=== PATIENT | female | born 1960 | race Caucasian/White ===

== ENCOUNTER 2020-01-19 06:03 | Outpatient (REF) | payer BC, SELFPAY ==
[2020-01-19 07:18] LABS: MANUAL DIFF FLAG NO
[2020-01-19 07:26] LABS: Basophils Absolute Auto 0.1 X10*3/uL (0.0-0.2); Basophils Percent Auto 0.9 % (0-2); Eosinophils Absolute Auto 0.4 X10*3/uL (0.0-0.4); Eosinophils Percent Auto 6.2 % (0-4); Hematocrit 41.7 % (37-47); Hemoglobin 14.1 g/dl (12.0-16.0); Imm Gran Abs Auto 0.03 X10*3/uL (0.00-0.03); Imm Gran Pct Auto 0.5 % (0.0-0.4); Lymphocytes Absolute Auto 1.3 X10*3/uL (1.2-4.9); Lymphocytes Percent Auto 22.3 % (20-40); Mean Corpuscular HGB Conc 33.8 g/dl (31.0-35.0); Mean Corpuscular Hemoglobin 28.8 pg (27.0-33.0); Mean Corpuscular Volume 85.3 fL (80-98); Mean Platelet Volume 9.4 fL (9.4-12.3); Monocytes Absolute Auto 0.5 X10*3/uL (0.1-1.2); Monocytes Percent Auto 8.3 % (2-11); Neutrophils Absolute Auto 3.5 X10*3/uL (2.0-8.3); Neutrophils Percent Auto 61.8 % (45-73); Platelet Count 320 X10*3/uL (160-400); Red Blood Count 4.89 X10*6/uL (4.20-5.50); Red Cell Distribution Width 12.5 % (11.0-16.0); White Blood Count 5.7 X10*3/uL (4.8-10.8)
[2020-01-19 07:35] LABS: Alanine Aminotransferase 17 U/L (0-31); Albumin Level 4.3 g/dL (3.5-5.0); Alkaline Phosphatase 59 U/L (39-117); Anion Gap 13 (12-20); Aspartate Amino Transferase 17 U/L (5-31); Bilirubin Total 0.3 mg/dL (0.0-1.0); Blood Urea Nitrogen 14 mg/dL (9-16); Calcium 9.5 mg/dL (8.4-10.2); Carbon Dioxide 28 mmol/L (22-29); Chloride 105 mmol/L (96-108); Cholesterol 211 mg/dL; Estimated Glomerular Filt Rate > 60; Glucose Random 91 mg/dL (60-115); HDL Cholesterol 44 mg/dL; LDL Cholesterol Calculated 129 mg/dl; Potassium 4.1 mmol/l (3.3-5.1); Sodium 142 mmol/L (135-145); Total Protein 6.8 g/dL (6.5-8.0); Triglycerides 190 mg/dL
[2020-01-19 07:59] LABS: Free T4 (Free Thyroxine) 0.77 ng/dL (0.71-1.85); Thyroid Stimulating Hormone 4.52 uIU/mL (0.32-4.0); Vitamin D 25-OH Total 36.2 ng/mL (>30)
[2020-01-19 08:07] LABS: Folate > 20.0 ng/mL (> or = 4.0); Vitamin B12 361 pg/mL (200-900)
== END 2020-01-19 06:04 | disposition home or self-care (01) ==
LOC: HO.LAB 06:03
PROVIDERS: PCP Internal Medicine; Visit Provider Internal Medicine
DX: E78.00 Pure hypercholesterolemia, unspecified (principal); E03.9 Hypothyroidism, unspecified
CPT/HCPCS: 36415; 80053; 80061; 82306; 82607; 82746; 84439; 84443; 85025

== ENCOUNTER 2020-05-21 05:56 | Outpatient (REF) | payer BC, SELFPAY ==
[2020-05-21 08:41] LABS: Free T4 (Free Thyroxine) 0.84 ng/dL (0.71-1.85); Thyroid Stimulating Hormone 3.66 uIU/mL (0.32-4.0)
== END 2020-05-21 05:57 | disposition home or self-care (01) ==
LOC: HO.LAB 05:56
PROVIDERS: PCP Internal Medicine; Visit Provider Internal Medicine
DX: E03.9 Hypothyroidism, unspecified (principal)
CPT/HCPCS: 36415; 84439; 84443

== ENCOUNTER 2021-05-29 06:14 | Outpatient (REF) | payer BC, SELFPAY ==
[2021-05-29 06:27] LABS: MANUAL DIFF FLAG NO
[2021-05-29 07:38] LABS: Basophils Absolute Auto 0.1 X10*3/uL (0.0-0.2); Eosinophils Absolute Auto 0.4 X10*3/uL (0.0-0.4); Eosinophils Percent Auto 6.9 % (0-4); Hematocrit 43.4 % (37.0-47.0); Hemoglobin 14.5 g/dl (12.0-16.0); Imm Gran Abs Auto 0.02 X10*3/uL (0.00-0.03); Imm Gran Pct Auto 0.3 % (0.0-0.4); Lymphocytes Absolute Auto 1.4 X10*3/uL (1.2-4.9); Lymphocytes Percent Auto 24.2 % (20-40); Mean Corpuscular HGB Conc 33.4 g/dl (31.0-35.0); Mean Corpuscular Hemoglobin 28.3 pg (27.0-33.0); Mean Corpuscular Volume 84.8 fL (80.0-98.0); Mean Platelet Volume 9.3 fL (9.4-12.3); Monocytes Absolute Auto 0.5 X10*3/uL (0.1-1.2); Monocytes Percent Auto 7.8 % (2-11); Neutrophils Absolute Auto 3.5 x10*3/uL (2.0-8.3); Neutrophils Percent Auto 59.8 % (45-73); Platelet Count 306 X10*3/uL (160-400); Red Blood Count 5.12 X10*6/uL (4.20-5.50); Red Cell Distribution Width 12.7 % (11.0-16.0); White Blood Count 5.8 X10*3/uL (4.8-10.8)
[2021-05-29 08:04] LABS: Alanine Aminotransferase 16 U/L (0-31); Albumin Level 4.4 g/dL (3.5-5.0); Alkaline Phosphatase 60 U/L (39-117); Anion Gap 12 (12-20); Aspartate Amino Transferase 16 U/L (5-31); Bilirubin Total 0.6 mg/dL (0.0-1.0); Blood Urea Nitrogen 16 mg/dL (9-16); Calcium 10.3 mg/dL (8.4-10.2); Carbon Dioxide 30 mmol/L (22-29); Chloride 103 mmol/L (96-108); Cholesterol 207 mg/dL; Estimated Glomerular Filt Rate > 60; Glucose Random 92 mg/dL (60-115); HDL Cholesterol 46 mg/dL; LDL Cholesterol Calculated 130 mg/dl; Potassium 4.3 mmol/L (3.3-5.1); Sodium 141 mmol/L (135-145); Triglycerides 156 mg/dL
[2021-05-29 08:28] LABS: Free T4 (Free Thyroxine) 0.98 ng/dL (0.71-1.85); Thyroid Stimulating Hormone 2.92 uIU/mL (0.32-4.0); Vitamin D 25-OH Total 43.8 ng/mL (>30)
[2021-05-29 09:10] LABS: Folate > 20.0 ng/mL (> or = 4.0); Vitamin B12 410 pg/mL (200-900)
== END 2021-05-29 06:15 | disposition home or self-care (01) ==
LOC: HO.LAB 06:14
PROVIDERS: PCP Internal Medicine; Visit Provider Internal Medicine
DX: E78.00 Pure hypercholesterolemia, unspecified (principal)
CPT/HCPCS: 36415; 80053; 80061; 82306; 82607; 82746; 84439; 84443; 85025

== ENCOUNTER 2021-11-01 06:03 | Outpatient (REF) | payer BC, SELFPAY ==
[2021-11-01 08:29] LABS: Free T4 (Free Thyroxine) 1.06 ng/dL (0.71-1.85); Thyroid Stimulating Hormone 3.27 uIU/mL (0.32-4.0)
[2021-11-04 17:25] LABS: Calcium (PTHI) 9.7 mg/dL (8.6-10.4); PTHI 72 pg/mL (16-77)
[2021-11-05 17:36] LABS: Calcium, Ionized 5.1 mg/dL (4.8-5.6)
== END 2021-11-01 06:04 | disposition home or self-care (01) ==
LOC: HO.LAB 06:03
PROVIDERS: PCP Internal Medicine; Visit Provider Internal Medicine
DX: E83.52 Hypercalcemia (principal)
CPT/HCPCS: 36415; 82330; 83970; 84439; 84443

== ENCOUNTER 2022-06-06 06:41 | Outpatient (REF) | payer BC, SELFPAY ==
[2022-06-06 06:51] LABS: MANUAL DIFF FLAG NO
[2022-06-06 07:10] LABS: Basophils Absolute Auto 0.1 X10*3/uL (0.0-0.2); Eosinophils Absolute Auto 0.4 X10*3/uL (0.0-0.4); Eosinophils Percent Auto 6.7 % (0-4); Hematocrit 43.1 % (37.0-47.0); Hemoglobin 14.6 g/dl (12.0-16.0); Imm Gran Abs Auto 0.03 X10*3/uL (0.00-0.03); Imm Gran Pct Auto 0.5 % (0.0-0.4); Lymphocytes Absolute Auto 1.6 X10*3/uL (1.2-4.9); Lymphocytes Percent Auto 24.9 % (20-40); Mean Corpuscular HGB Conc 33.9 g/dl (31.0-35.0); Mean Corpuscular Hemoglobin 28.5 pg (27.0-33.0); Mean Corpuscular Volume 84.2 fL (80.0-98.0); Mean Platelet Volume 8.9 fL (9.4-12.3); Monocytes Absolute Auto 0.5 X10*3/uL (0.1-1.2); Monocytes Percent Auto 8.3 % (2-11); Neutrophils Absolute Auto 3.7 x10*3/uL (2.0-8.3); Neutrophils Percent Auto 58.6 % (45-73); Platelet Count 318 X10*3/uL (160-400); Red Blood Count 5.12 X10*6/uL (4.20-5.50); Red Cell Distribution Width 12.8 % (11.0-16.0); White Blood Count 6.3 X10*3/uL (4.8-10.8)
[2022-06-06 09:23] LABS: Folate 17.1 ng/mL (> or = 4.0); Free T4 (Free Thyroxine) 0.81 ng/dL (0.71-1.85); Thyroid Stimulating Hormone 4.09 uIU/mL (0.32-4.0); Vitamin B12 498 pg/mL (200-900); Vitamin D 25-OH Total 47.3 ng/mL (>30)
[2022-06-06 10:08] LABS: Alanine Aminotransferase 24 U/L (0-31); Albumin Level 4.5 g/dL (3.5-5.0); Alkaline Phosphatase 63 U/L (39-117); Anion Gap 12 (12-20); Aspartate Amino Transferase 21 U/L (5-31); Bilirubin Total 0.7 mg/dL (0.0-1.0); Blood Urea Nitrogen 13 mg/dL (9-16); Calcium 9.6 mg/dL (8.4-10.2); Carbon Dioxide 28 mmol/L (22-29); Chloride 107 mmol/L (96-108); Cholesterol 232 mg/dL; Estimated Glomerular Filt Rate > 60; Glucose Random 97 mg/dL (60-115); HDL Cholesterol 41 mg/dL; LDL Cholesterol Calculated 147 mg/dl; Sodium 143 mmol/L (135-145); Total Protein 6.9 g/dL (6.5-8.0); Triglycerides 222 mg/dL
[2022-06-09 15:17] LABS: Calcium (PTHI) 9.7 mg/dL (8.6-10.4); PTHI 52 pg/mL (16-77)
== END 2022-06-06 06:42 | disposition home or self-care (01) ==
LOC: HO.LAB 06:41
PROVIDERS: PCP Internal Medicine; Visit Provider Internal Medicine
DX: E78.00 Pure hypercholesterolemia, unspecified (principal); E03.9 Hypothyroidism, unspecified; E83.52 Hypercalcemia; K21.9 Gastro-esophageal reflux disease without esophagitis
CPT/HCPCS: 36415; 80053; 80061; 82306; 82607; 82746; 83970; 84439; 84443; 85025

== ENCOUNTER 2022-07-08 11:34 | Emergency (ER) | payer BC, SELFPAY ==
[2022-07-08] VITALS (13 sets, daily range): BP systolic 122–220; BP diastolic 77–129; PULSE 56–85; RESP 13–19; TEMP 36.6–36.9; O2SAT 94–98; BMI 27.5
--- NOTE | 2022-07-08 | ECG_ITS ---
Test Reason : SYNCOPE Blood Pressure : / mmHG Vent. Rate : 054 BPM Atrial Rate : 054 BPM P-R Int : 152 ms QRS Dur : 092 ms QT Int : 450 ms P-R-T Axes : 038 -04 008 degrees QTc Int : 426 ms Sinus bradycardia T wave abnormality, consider anterior ischemia Abnormal ECG When compared with ECG of 08-JUL-2022 12:06, Nonspecific T wave abnormality now evident in Lateral leads Referred By: Enriqueta Winslow Electronically Signed By:MADIHA MARTINEZ MD
--- NOTE | 2022-07-08 11:59 | ED_ITS ---
HPI - General Adult General Chief complaint: General Medical Stated complaint: HBP Time Seen by Provider: 07/08/22 14:04 Related Data Home Medications Medication Instructions Recorded Confirmed cholecalciferol (vitamin D3) 25 25 mcg PO DAILY 06/04/20 07/01/22 mcg (1,000 unit) capsule multivitamin 1 tab PO DAILY 06/04/20 07/01/22 ibuprofen 200 mg tablet (Advil) 200 mg PO Q6H PRN 07/01/22 07/01/22 Previous Rx's Medication Instructions Recorded mometasone 0.1 % topical cream 1 appl topical DAILY 14 days #45 01/26/20 grams pravastatin 10 mg tablet 10 mg PO DAILY #90 tabs 06/06/21 levothyroxine 75 mcg tablet 75 mcg PO DAILY #90 tabs 06/25/22 amlodipine 10 mg tablet 10 mg PO DAILY #30 tabs 07/08/22 Allergies Allergy/AdvReac Type Severity Reaction Status Date / Time Codeine Allergy Unknown Unknown Verified 07/08/22 11:59 naproxen [From Aleve] Allergy Unknown but no Verified 07/08/22 11:59 problems with advil simvastatin Allergy Unknown Unknown Verified 07/08/22 11:59 [facility] Past Medical History Medical History Fibroid GERD (gastroesophageal reflux disease) Hypercholesterolemia Hypothyroid Surgical History H/O tubal ligation History of cholecystectomy History of dilatation and curettage Family History Family History (Updated 07/01/22 @ 17:10 by Marcos Kaba MD) Mother Renal cancer Father FH: prostate cancer Lewy body dementia Parkinson disease Paternal Grandmother Breast cancer Paternal Aunt Breast cancer Maternal Uncle FH: prostate cancer Maternal Grandfather CVA (cerebral vascular accident) Social History Social History (Updated 07/01/22 @ 17:10 by Marcos Kaba MD) Housing: Apartment Alcohol intake: current Alcohol intake frequency: does not drink Patient Tobacco Use Status: Never used Tobacco e-Cigarette/Vaping Use: Never Used Second Hand Smoke Exposure: No Current occupational status: employed Cognitive needs: No Hearing needs: No Vision needs: No Physical Exam ED Vital Signs: Vital Signs - 24 hr 07/08/22 11:59 07/08/22 14:04 07/08/22 14:51 Temperature 98 F Pulse Rate 78 64 70 Respiratory Rate 19 18 Blood Pressure 220/129 H 204/109 H 166/92 H Pulse Oximetry 98 95 Oxygen Delivery Method Room Air Room Air 07/08/22 16:43 07/08/22 17:54 07/08/22 17:56 Temperature Pulse Rate 70 56 64 Respiratory Rate 18 16 13 Blood Pressure 156/89 H 133/80 134/87 Pulse Oximetry 98 94 94 Oxygen Delivery Method Room Air Room Air Room Air 07/08/22 17:57 Temperature Pulse Rate 65 Respiratory Rate 15 Blood Pressure 122/83 Pulse Oximetry 95 Oxygen Delivery Method Room Air BMI result Body Mass Index 27.5 Course Course Course Narrative: RME - 62 y/o female presents to the ER for evaluation of elevated BP for the las t [address]. [address] Kaba but was not started on any medications, was 172/98 (was normal year prior). BP at home 220/140. Reports fuzzy vision today, no chest pain or headache. Increased fatigue and flushed sensation with activity. BP in triage 220/129 Plan: labs, EKG, antihypertensive treatment Reevaluation(s) Reevaluation #1: see dr. ledbetter note for full assessment and plan Medications Administered Discontinued Medications Generic Name Dose Route Start Last Admin Trade Name Freq PRN Reason Stop Dose Admin Labetalol HCl 100 mg 07/08/22 14:18 07/08/22 14:51 Labetalol Hcl 100 Mg Tablet PO 07/08/22 14:19 100 mg ONCE ONE Administration Protocol Medical Decision Making Lab Data 07/08/22 12:06 07/08/22 12:06 Labs: Lab Results 07/08/22 07/08/22 07/08/22 Range/Units 12:06 12:06 12:06 WBC 6.4 (4.8-10.8) X10*3/uL RBC 5.24 (4.20-5.50) X10*6/uL Hgb 14.6 (12.0-16.0) g/dl Hct 44.0 (37.0-47.0) % MCV 84.0 (80.0-98.0) fL MCH 27.9 (27.0-33.0) pg MCHC 33.2 (31.0-35.0) g/dl RDW 12.7 (11.0-16.0) % Plt Count 316 (160-400) X10*3/uL MPV 8.9 L (9.4-12.3) fL Immature Gran % (Auto) 0.5 H (0.0-0.4) % Neut % (Auto) 59.4 (45-73) % Lymph % (Auto) 26.5 (20-40) % [place] % (Auto) 7.8 (2-11) % Eos % (Auto) 5.0 H (0-4) % Baso % (Auto) 0.8 (0-2) % Lymph # (Auto) 1.7 (1.2-4.9) X10*3/uL [place] # (Auto) 0.5 (0.1-1.2) X10*3/uL Eos # (Auto) 0.3 (0.0-0.4) X10*3/uL Baso # (Auto) 0.1 (0.0-0.2) X10*3/uL Abs Immat Gran (auto) 0.03 (0.00-0.03) X10*3/uL Absolute Neuts (auto) 3.8 (2.0-8.3) x10*3/uL Absolute Nucleated RBC 0.000 (0.0-0.012) X10*3/uL Nucleated RBC % (auto) 0.0 (0.0-0.2) /100WBC Sodium 142 (135-145) mmol/L Potassium 4.1 (3.3-5.1) mmol/L Chloride 106 (96-108) mmol/L Carbon Dioxide 28 (22-29) mmol/L Anion Gap 12 (12-20) BUN 15 (9-16) mg/dL Creatinine 0.88 (0.5-1.4) mg/dL Estim Creat Clear Calc 68.8 Estimated GFR > 60 POC Glucose (60-115) mg/dL Random Glucose 100 (60-115) mg/dL Calcium 9.9 (8.4-10.2) mg/dL Magnesium 2.1 (1.6-2.6) mg/dL Total Bilirubin 0.6 (0.0-1.0) mg/dL Direct Bilirubin 0.2 (0.0-0.5) mg/dL AST 16 (5-31) U/L ALT 18 (0-31) U/L Alkaline Phosphatase 59 (39-117) U/L Troponin I High Sens (<3.5-17.0) ng/L B-Natriuretic Peptide 14 (<100) pg/mL Total Protein 7.1 (6.5-8.0) g/dL Albumin 4.5 (3.5-5.0) g/dL TSH 1.81 (0.32-4.0) uIU/mL Urine Color Urine Appearance Urine pH (5.0-9.0) Ur Specific [place] (1.005-1.025) Urine Protein (Neg-Trace) mg/dL Urine Glucose (UA) (Negative) mg/dL Urine Ketones (Negative) mg/dL Urine Blood (Negative) Urine Nitrite (Negative) Ur Leukocyte Esterase (Negative) 07/08/22 07/08/22 07/08/22 Range/Units 14:01 14:55 17:43 WBC (4.8-10.8) X10*3/uL RBC (4.20-5.50) X10*6/uL Hgb (12.0-16.0) g/dl Hct (37.0-47.0) % MCV (80.0-98.0) fL MCH (27.0-33.0) pg MCHC (31.0-35.0) g/dl RDW (11.0-16.0) % Plt Count (160-400) X10*3/uL MPV (9.4-12.3) fL Immature Gran % (Auto) (0.0-0.4) % Neut % (Auto) (45-73) % Lymph % (Auto) (20-40) % [place] % (Auto) (2-11) % Eos % (Auto) (0-4) % Baso % (Auto) (0-2) % Lymph # (Auto) (1.2-4.9) X10*3/uL [place] # (Auto) (0.1-1.2) X10*3/uL Eos # (Auto) (0.0-0.4) X10*3/uL Baso # (Auto) (0.0-0.2) X10*3/uL Abs Immat Gran (auto) (0.00-0.03) X10*3/uL Absolute Neuts (auto) (2.0-8.3) x10*3/uL Absolute Nucleated RBC (0.0-0.012) X10*3/uL Nucleated RBC % (auto) (0.0-0.2) /100WBC Sodium (135-145) mmol/L Potassium (3.3-5.1) mmol/L Chloride (96-108) mmol/L Carbon Dioxide (22-29) mmol/L Anion Gap (12-20) BUN (9-16) mg/dL Creatinine (0.5-1.4) mg/dL Estim Creat Clear Calc Estimated GFR POC Glucose 111 (60-115) mg/dL Random Glucose (60-115) mg/dL Calcium (8.4-10.2) mg/dL Magnesium (1.6-2.6) mg/dL Total Bilirubin (0.0-1.0) mg/dL Direct Bilirubin (0.0-0.5) mg/dL AST (5-31) U/L ALT (0-31) U/L Alkaline Phosphatase (39-117) U/L Troponin I High Sens < 2.7 (<3.5-17.0) ng/L B-Natriuretic Peptide (<100) pg/mL Total Protein (6.5-8.0) g/dL Albumin (3.5-5.0) g/dL TSH (0.32-4.0) uIU/mL Urine Color Yellow Urine Appearance Clear Urine pH 7.0 (5.0-9.0) Ur Specific [place] <= 1.005 (1.005-1.025) Urine Protein Negative (Neg-Trace) mg/dL Urine Glucose (UA) Negative (Negative) mg/dL Urine Ketones Negative (Negative) mg/dL Urine Blood Negative (Negative) Urine Nitrite Negative (Negative) Ur Leukocyte Esterase Negative (Negative) 07/08/22 Range/Units 18:52 WBC (4.8-10.8) X10*3/uL RBC (4.20-5.50) X10*6/uL Hgb (12.0-16.0) g/dl Hct (37.0-47.0) % MCV (80.0-98.0) fL MCH (27.0-33.0) pg MCHC (31.0-35.0) g/dl RDW (11.0-16.0) % Plt Count (160-400) X10*3/uL MPV (9.4-12.3) fL Immature Gran % (Auto) (0.0-0.4) % Neut % (Auto) (45-73) % Lymph % (Auto) (20-40) % [place] % (Auto) (2-11) % Eos % (Auto) (0-4) % Baso % (Auto) (0-2) % Lymph # (Auto) (1.2-4.9) X10*3/uL [place] # (Auto) (0.1-1.2) X10*3/uL Eos # (Auto) (0.0-0.4) X10*3/uL Baso # (Auto) (0.0-0.2) X10*3/uL Abs Immat Gran (auto) (0.00-0.03) X10*3/uL Absolute Neuts (auto) (2.0-8.3) x10*3/uL Absolute Nucleated RBC (0.0-0.012) X10*3/uL Nucleated RBC % (auto) (0.0-0.2) /100WBC Sodium (135-145) mmol/L Potassium (3.3-5.1) mmol/L Chloride (96-108) mmol/L Carbon Dioxide (22-29) mmol/L Anion Gap (12-20) BUN (9-16) mg/dL Creatinine (0.5-1.4) mg/dL Estim Creat Clear Calc Estimated GFR POC Glucose (60-115) mg/dL Random Glucose (60-115) mg/dL Calcium (8.4-10.2) mg/dL Magnesium (1.6-2.6) mg/dL Total Bilirubin (0.0-1.0) mg/dL Direct Bilirubin (0.0-0.5) mg/dL AST (5-31) U/L ALT (0-31) U/L Alkaline Phosphatase (39-117) U/L Troponin I High Sens < 2.7 (<3.5-17.0) ng/L B-Natriuretic Peptide (<100) pg/mL Total Protein (6.5-8.0) g/dL Albumin (3.5-5.0) g/dL TSH (0.32-4.0) uIU/mL Urine Color Urine Appearance Urine pH (5.0-9.0) Ur Specific [place] (1.005-1.025) Urine Protein (Neg-Trace) mg/dL Urine Glucose (UA) (Negative) mg/dL Urine Ketones (Negative) mg/dL Urine Blood (Negative) Urine Nitrite (Negative) Ur Leukocyte Esterase (Negative) Discharge Plan Discharge Clinical Impression: Hypertension Patient Disposition: Home, Self-Care Instructions: Hypertension (ED) Additional Instructions: Please follow-up with your primary care physician tomorrow. If you have any worsening or new symptoms, please return to the emergency room or call 911 Prescriptions: New amlodipine 10 mg tablet 10 mg PO DAILY Qty: 30 0RF No Action mometasone 0.1 % cream 1 appl topical DAILY 14 Days Qty: 45 0RF levothyroxine 75 mcg tablet 75 mcg PO DAILY Qty: 90 3RF cholecalciferol (vitamin D3) 25 mcg (1,000 unit) capsule 25 mcg PO DAILY multivitamin Tablet 1 tab PO DAILY pravastatin 10 mg tablet 10 mg PO DAILY Qty: 90 3RF ibuprofen [Advil] 200 mg tablet 200 mg PO Q6H PRN Stand Alone Forms: Work/School Release Interventions: ED Discharge Assessment Last Done: 07/08/22 21:33 Discharge Date/Time: 07/08/22 21:33
--- NOTE | 2022-07-08 12:01 | ECG_ITS ---
Test Reason : htn Blood Pressure : / mmHG Vent. Rate : 075 BPM Atrial Rate : 075 BPM P-R Int : 150 ms QRS Dur : 086 ms QT Int : 414 ms P-R-T Axes : 005 -23 -14 degrees QTc Int : 462 ms Normal sinus rhythm Normal ECG No previous ECGs available Referred By: Debra Leslie Electronically Signed By:MADIHA MARTINEZ MD
[2022-07-08 12:15] LABS: MANUAL DIFF FLAG NO
[2022-07-08 12:17] LABS: Basophils Absolute Auto 0.1 X10*3/uL (0.0-0.2); Basophils Percent Auto 0.8 % (0-2); Eosinophils Absolute Auto 0.3 X10*3/uL (0.0-0.4); Hemoglobin 14.6 g/dl (12.0-16.0); Imm Gran Abs Auto 0.03 X10*3/uL (0.00-0.03); Imm Gran Pct Auto 0.5 % (0.0-0.4); Lymphocytes Absolute Auto 1.7 X10*3/uL (1.2-4.9); Lymphocytes Percent Auto 26.5 % (20-40); Mean Corpuscular HGB Conc 33.2 g/dl (31.0-35.0); Mean Corpuscular Hemoglobin 27.9 pg (27.0-33.0); Mean Platelet Volume 8.9 fL (9.4-12.3); Monocytes Absolute Auto 0.5 X10*3/uL (0.1-1.2); Monocytes Percent Auto 7.8 % (2-11); Neutrophils Absolute Auto 3.8 x10*3/uL (2.0-8.3); Neutrophils Percent Auto 59.4 % (45-73); Platelet Count 316 X10*3/uL (160-400); Red Blood Count 5.24 X10*6/uL (4.20-5.50); Red Cell Distribution Width 12.7 % (11.0-16.0); White Blood Count 6.4 X10*3/uL (4.8-10.8)
[2022-07-08 12:36] LABS: Alanine Aminotransferase 18 U/L (0-31); Albumin Level 4.5 g/dL (3.5-5.0); Alkaline Phosphatase 59 U/L (39-117); Anion Gap 12 (12-20); Aspartate Amino Transferase 16 U/L (5-31); Bilirubin Direct 0.2 mg/dL (0.0-0.5); Bilirubin Total 0.6 mg/dL (0.0-1.0); Blood Urea Nitrogen 15 mg/dL (9-16); Calcium 9.9 mg/dL (8.4-10.2); Carbon Dioxide 28 mmol/L (22-29); Chloride 106 mmol/L (96-108); Creatinine Clr Calc Pharmacy 68.8; Estimated Glomerular Filt Rate > 60; Glucose Random 100 mg/dL (60-115); Magnesium 2.1 mg/dL (1.6-2.6); Potassium 4.1 mmol/L (3.3-5.1); Sodium 142 mmol/L (135-145); Total Protein 7.1 g/dL (6.5-8.0)
[2022-07-08 14:19] LABS: Appearance Urine Clear; Color Urine Yellow; Glucose Urine UA Negative (Negative); Leukocyte Esterase Urine Negative (Negative); Nitrite Urine Negative (Negative); Specific Gravity - Urine <= 1.005 (1.005-1.025); Urine Blood Negative (Negative); Urine Ketones Negative (Negative); Urine Protein Negative (Neg-Trace)
--- NOTE | 2022-07-08 14:19 | ED.GENADULT ---
HPI - General Adult General Chief complaint: General Medical Stated complaint: HBP Time Seen by Provider: 07/08/22 14:04 Source: patient Mode of arrival: ambulatory Limitations: no limitations History of Present Illness HPI narrative: Patient comes to the emergency room complaining of high blood pressure. Patient states that a week ago she had her yearly physical, she was informed that she had high blood pressure. Patient was asked to monitor her blood pressure at home to return in 3 months. Patient states that over last week, her lowest blood pressure has been 170 systolic. Patient states that occasionally she has some chest pain, unsure if it is muscular pain since her job is physical. At this time patient has no chest pain, patient denies any shortness of breath, no headache, or blurred vision. Patient states that she has taken her blood pressure several times including at home, pharmacies, in her job, and the doctor's office, all of her blood pressures have been fairly elevated Related Data Home Medications Medication Instructions Recorded Confirmed cholecalciferol (vitamin D3) 25 25 mcg PO DAILY 06/04/20 07/01/22 mcg (1,000 unit) capsule multivitamin 1 tab PO DAILY 06/04/20 07/01/22 ibuprofen 200 mg tablet (Advil) 200 mg PO Q6H PRN 07/01/22 07/01/22 Previous Rx's Medication Instructions Recorded mometasone 0.1 % topical cream 1 appl topical DAILY 14 days #45 01/26/20 grams pravastatin 10 mg tablet 10 mg PO DAILY #90 tabs 06/06/21 levothyroxine 75 mcg tablet 75 mcg PO DAILY #90 tabs 06/25/22 amlodipine 10 mg tablet 10 mg PO DAILY #30 tabs 07/08/22 Allergies Allergy/AdvReac Type Severity Reaction Status Date / Time Codeine Allergy Unknown Unknown Verified 07/08/22 11:59 naproxen [From Aleve] Allergy Unknown but no Verified 07/08/22 11:59 problems with advil simvastatin Allergy Unknown Unknown Verified 07/08/22 11:59 Review of Systems Review of Systems: Constitutional : No Weight loss, No Fever, No Chills, No Night Sweats, mild Fatigue, No Malaise ENT/Mouth : No Hearing loss, No Ear Pain, No Nasal Congestion, No Sinus Pain, No Hoarseness, No sore throat, No Rhinorrhea, No Swallowing Difficulty Eyes: No Eye Pain, No Swelling, No Redness, No Foreign Body, No Discharge, No Vision Changes Cardiovascular : No Chest Pain, No SOB, No Dyspnea on Exertion, No Orthopnea, No Edema, No Palpitations Respiratory : No Cough, No Sputum, No Wheezing, No Smoke Exposure, No Dyspnea Gastrointestinal : No Nausea, No Vomiting, No Diarrhea, No Constipation, No abdominal Pain, No Hematochezia, No Melena Genitourinary : no irregular bleeding, No Dysuria, No Urinary Frequency, No Hematuria, No Urinary Incontinence, No Urgency, No Flank Pain, No Urinary Flow Changes, No Hesitancy Musculoskeletal : No joint pain, No Myalgias, No Joint Swelling Skin : No Skin Lesions, No rash Neuro : No Weakness, No Numbness, No Paresthesias, No Loss of Consciousness, No Dizziness, No Headache Psych : No Anxiety/Panic, No Depression, No SI/HI/AH/VH, No Social Issues, Heme/Lymph: No Bruising, No Bleeding,No Lymphadenopathy Endocrine : No Polyuria, No Polydipsia, No Temperature Intolerance [facility] Past Medical History Medical History Fibroid GERD (gastroesophageal reflux disease) Hypercholesterolemia Hypothyroid Surgical History H/O tubal ligation History of cholecystectomy History of dilatation and curettage Family History Family History (Updated 07/01/22 @ 17:10 by Marcos Kaba MD) Mother Renal cancer Father FH: prostate cancer Lewy body dementia Parkinson disease Paternal Grandmother Breast cancer Paternal Aunt Breast cancer Maternal Uncle FH: prostate cancer Maternal Grandfather CVA (cerebral vascular accident) Social History Social History (Updated 07/01/22 @ 17:10 by Marcos Kaba MD) Housing: Apartment Alcohol intake: current Alcohol intake frequency: holidays/special occasions only Patient Tobacco Use Status: Never used Tobacco e-Cigarette/Vaping Use: Never Used Second Hand Smoke Exposure: No Advance Directives: No Advance Directives Information Provided: Yes Current occupational status: employed Cognitive needs: No Hearing needs: No Vision needs: No Physical Exam ED Vital Signs: Vital Signs - 24 hr 07/08/22 11:59 07/08/22 14:04 07/08/22 14:51 Temperature 98 F Pulse Rate 78 64 70 Respiratory Rate 19 18 Blood Pressure 220/129 H 204/109 H 166/92 H Pulse Oximetry 98 95 Oxygen Delivery Method Room Air Room Air 07/08/22 16:43 07/08/22 17:54 07/08/22 17:56 Temperature Pulse Rate 70 56 64 Respiratory Rate 18 16 13 Blood Pressure 156/89 H 133/80 134/87 Pulse Oximetry 98 94 94 Oxygen Delivery Method Room Air Room Air Room Air 07/08/22 17:57 07/08/22 19:27 07/08/22 19:29 Temperature Pulse Rate 65 67 74 Respiratory Rate 15 Blood Pressure 122/83 152/95 H 163/100 H Pulse Oximetry 95 Oxygen Delivery Method Room Air 07/08/22 19:31 07/08/22 20:18 07/08/22 20:45 Temperature Pulse Rate 85 70 66 Respiratory Rate 18 15 Blood Pressure 159/109 H 166/77 H 169/95 H Pulse Oximetry 96 Oxygen Delivery Method Room Air BMI result Body Mass Index 27.5 Const Other: Appearance: Alert. Oriented X3. No acute distress. Eyes: Pupils equal, round and reactive to light. ENT: Pharynx normal. Neck: Normal inspection. Neck supple. No lymph nodes noted. No crepitus CVS: Normal heart rate and rhythm. Pulses normal. Normal S1 and S2 Respiratory: No respiratory distress. Breath sounds normal. No Wheezing. No rales Abdomen: Soft and nontender. No rigidity. No distention. Skin: Skin warm and dry. Normal skin color. Normal skin turgor. Extremities: No lower extremity edema. No Lacerations. No Rash Neuro: Oriented X 3. No motor deficit. No sensory deficit. Moving all extremities. No slurred speech. CN 2 through 12 grossly intact Psych: calm, cooperative, normal affect Medications Administered Discontinued Medications Generic Name Dose Route Start Last Admin Trade Name Freq PRN Reason Stop Dose Admin Labetalol HCl 100 mg 07/08/22 14:18 07/08/22 14:51 Labetalol Hcl 100 Mg Tablet PO 07/08/22 14:19 100 mg ONCE ONE Administration Protocol Medical Decision Making Medical Decision Making MDM Narrative: -patient's blood pressure improved with 100 mg of labetalol, now 156/89 -patient asymptomatic, will be discharged home with a prescription of amlodipine 10 mg. Patient instructed to keep a log of her blood pressure. -EKG my interpretation: Sinus rhythm, heart rate 75, no ST segment depression or elevation, nonspecific T-wave inversion in lead 3, QTC 462 -I was informed by the patient's nurse at the time of discharge, patient was walking towards the exit, patient had lightheadedness and nearly passed out. Patient was helped back to her room. Patient is chest pain or shortness of breath. -EKG was obtained, shows a heart rate of 54. Bradycardia likely secondary to the labetalol that was given earlier today. -patient's ultrasound XR negative, EKG repeated, EKG 3. June interpretation: Sinus rhythm, heart rate 70, no ST segment depression or elevation, T-wave inversions V3 to V6, no changes from previous EKG from 17:45. Patient is able to ambulate unassisted, states she feels slightly lightheaded, good truncal stability -I discussed the patient, EKG with Dr. Monsivais, this was likely secondary to rapid blood pressure correction, you inversions are nonspecific -patient walked with her nurse around the emergency room 5 times, patient states that she feels a little wobbly but patient had normal gait, patient feels comfortable being discharged home. Lab Data MDM Lab Attestation statement: I reviewed the patient's lab results. 07/08/22 12:06 07/08/22 12:06 Labs: Lab Results 07/08/22 07/08/22 07/08/22 Range/Units 12:06 12:06 12:06 WBC 6.4 (4.8-10.8) X10*3/uL RBC 5.24 (4.20-5.50) X10*6/uL Hgb 14.6 (12.0-16.0) g/dl Hct 44.0 (37.0-47.0) % MCV 84.0 (80.0-98.0) fL MCH 27.9 (27.0-33.0) pg MCHC 33.2 (31.0-35.0) g/dl RDW 12.7 (11.0-16.0) % Plt Count 316 (160-400) X10*3/uL MPV 8.9 L (9.4-12.3) fL Immature Gran % (Auto) 0.5 H (0.0-0.4) % Neut % (Auto) 59.4 (45-73) % Lymph % (Auto) 26.5 (20-40) % [place] % (Auto) 7.8 (2-11) % Eos % (Auto) 5.0 H (0-4) % Baso % (Auto) 0.8 (0-2) % Lymph # (Auto) 1.7 (1.2-4.9) X10*3/uL [place] # (Auto) 0.5 (0.1-1.2) X10*3/uL Eos # (Auto) 0.3 (0.0-0.4) X10*3/uL Baso # (Auto) 0.1 (0.0-0.2) X10*3/uL Abs Immat Gran (auto) 0.03 (0.00-0.03) X10*3/uL Absolute Neuts (auto) 3.8 (2.0-8.3) x10*3/uL Absolute Nucleated RBC 0.000 (0.0-0.012) X10*3/uL Nucleated RBC % (auto) 0.0 (0.0-0.2) /100WBC Sodium 142 (135-145) mmol/L Potassium 4.1 (3.3-5.1) mmol/L Chloride 106 (96-108) mmol/L Carbon Dioxide 28 (22-29) mmol/L Anion Gap 12 (12-20) BUN 15 (9-16) mg/dL Creatinine 0.88 (0.5-1.4) mg/dL Estim Creat Clear Calc 68.8 Estimated GFR > 60 POC Glucose (60-115) mg/dL Random Glucose 100 (60-115) mg/dL Calcium 9.9 (8.4-10.2) mg/dL Magnesium 2.1 (1.6-2.6) mg/dL Total Bilirubin 0.6 (0.0-1.0) mg/dL Direct Bilirubin 0.2 (0.0-0.5) mg/dL AST 16 (5-31) U/L ALT 18 (0-31) U/L Alkaline Phosphatase 59 (39-117) U/L Troponin I High Sens (<3.5-17.0) ng/L B-Natriuretic Peptide 14 (<100) pg/mL Total Protein 7.1 (6.5-8.0) g/dL Albumin 4.5 (3.5-5.0) g/dL TSH 1.81 (0.32-4.0) uIU/mL Urine Color Urine Appearance Urine pH (5.0-9.0) Ur Specific [place] (1.005-1.025) Urine Protein (Neg-Trace) mg/dL Urine Glucose (UA) (Negative) mg/dL Urine Ketones (Negative) mg/dL Urine Blood (Negative) Urine Nitrite (Negative) Ur Leukocyte Esterase (Negative) 07/08/22 07/08/22 07/08/22 Range/Units 14:01 14:55 17:43 WBC (4.8-10.8) X10*3/uL RBC (4.20-5.50) X10*6/uL Hgb (12.0-16.0) g/dl Hct (37.0-47.0) % MCV (80.0-98.0) fL MCH (27.0-33.0) pg MCHC (31.0-35.0) g/dl RDW (11.0-16.0) % Plt Count (160-400) X10*3/uL MPV (9.4-12.3) fL Immature Gran % (Auto) (0.0-0.4) % Neut % (Auto) (45-73) % Lymph % (Auto) (20-40) % [place] % (Auto) (2-11) % Eos % (Auto) (0-4) % Baso % (Auto) (0-2) % Lymph # (Auto) (1.2-4.9) X10*3/uL [place] # (Auto) (0.1-1.2) X10*3/uL Eos # (Auto) (0.0-0.4) X10*3/uL Baso # (Auto) (0.0-0.2) X10*3/uL Abs Immat Gran (auto) (0.00-0.03) X10*3/uL Absolute Neuts (auto) (2.0-8.3) x10*3/uL Absolute Nucleated RBC (0.0-0.012) X10*3/uL Nucleated RBC % (auto) (0.0-0.2) /100WBC Sodium (135-145) mmol/L Potassium (3.3-5.1) mmol/L Chloride (96-108) mmol/L Carbon Dioxide (22-29) mmol/L Anion Gap (12-20) BUN (9-16) mg/dL Creatinine (0.5-1.4) mg/dL Estim Creat Clear Calc Estimated GFR POC Glucose 111 (60-115) mg/dL Random Glucose (60-115) mg/dL Calcium (8.4-10.2) mg/dL Magnesium (1.6-2.6) mg/dL Total Bilirubin (0.0-1.0) mg/dL Direct Bilirubin (0.0-0.5) mg/dL AST (5-31) U/L ALT (0-31) U/L Alkaline Phosphatase (39-117) U/L Troponin I High Sens < 2.7 (<3.5-17.0) ng/L B-Natriuretic Peptide (<100) pg/mL Total Protein (6.5-8.0) g/dL Albumin (3.5-5.0) g/dL TSH (0.32-4.0) uIU/mL Urine Color Yellow Urine Appearance Clear Urine pH 7.0 (5.0-9.0) Ur Specific [place] <= 1.005 (1.005-1.025) Urine Protein Negative (Neg-Trace) mg/dL Urine Glucose (UA) Negative (Negative) mg/dL Urine Ketones Negative (Negative) mg/dL Urine Blood Negative (Negative) Urine Nitrite Negative (Negative) Ur Leukocyte Esterase Negative (Negative) 07/08/22 Range/Units 18:52 WBC (4.8-10.8) X10*3/uL RBC (4.20-5.50) X10*6/uL Hgb (12.0-16.0) g/dl Hct (37.0-47.0) % MCV (80.0-98.0) fL MCH (27.0-33.0) pg MCHC (31.0-35.0) g/dl RDW (11.0-16.0) % Plt Count (160-400) X10*3/uL MPV (9.4-12.3) fL Immature Gran % (Auto) (0.0-0.4) % Neut % (Auto) (45-73) % Lymph % (Auto) (20-40) % [place] % (Auto) (2-11) % Eos % (Auto) (0-4) % Baso % (Auto) (0-2) % Lymph # (Auto) (1.2-4.9) X10*3/uL [place] # (Auto) (0.1-1.2) X10*3/uL Eos # (Auto) (0.0-0.4) X10*3/uL Baso # (Auto) (0.0-0.2) X10*3/uL Abs Immat Gran (auto) (0.00-0.03) X10*3/uL Absolute Neuts (auto) (2.0-8.3) x10*3/uL Absolute Nucleated RBC (0.0-0.012) X10*3/uL Nucleated RBC % (auto) (0.0-0.2) /100WBC Sodium (135-145) mmol/L Potassium (3.3-5.1) mmol/L Chloride (96-108) mmol/L Carbon Dioxide (22-29) mmol/L Anion Gap (12-20) BUN (9-16) mg/dL Creatinine (0.5-1.4) mg/dL Estim Creat Clear Calc Estimated GFR POC Glucose (60-115) mg/dL Random Glucose (60-115) mg/dL Calcium (8.4-10.2) mg/dL Magnesium (1.6-2.6) mg/dL Total Bilirubin (0.0-1.0) mg/dL Direct Bilirubin (0.0-0.5) mg/dL AST (5-31) U/L ALT (0-31) U/L Alkaline Phosphatase (39-117) U/L Troponin I High Sens < 2.7 (<3.5-17.0) ng/L B-Natriuretic Peptide (<100) pg/mL Total Protein (6.5-8.0) g/dL Albumin (3.5-5.0) g/dL TSH (0.32-4.0) uIU/mL Urine Color Urine Appearance Urine pH (5.0-9.0) Ur Specific Herreid (1.005-1.025) Urine Protein (Neg-Trace) mg/dL Urine Glucose (UA) (Negative) mg/dL Urine Ketones (Negative) mg/dL Urine Blood (Negative) Urine Nitrite (Negative) Ur Leukocyte Esterase (Negative) Critical Care Time Critical Care Time Total Critical Care Time: 45 Attestation: I have personally provided critical care time. Time includes review of lab data, radiology results, discussion with consultants, and monitoring for potential decompensation. Intervention performed as documented. Discharge Plan Discharge Clinical Impression: Hypertension Patient Disposition: Home, Self-Care Instructions: Hypertension (ED) Additional Instructions: Please follow-up with your primary care physician tomorrow. If you have any worsening or new symptoms, please return to the emergency room or call 911 Prescriptions: New amlodipine 10 mg tablet 10 mg PO DAILY Qty: 30 0RF No Action mometasone 0.1 % cream 1 appl topical DAILY 14 Days Qty: 45 0RF levothyroxine 75 mcg tablet 75 mcg PO DAILY Qty: 90 3RF cholecalciferol (vitamin D3) 25 mcg (1,000 unit) capsule 25 mcg PO DAILY multivitamin Tablet 1 tab PO DAILY pravastatin 10 mg tablet 10 mg PO DAILY Qty: 90 3RF ibuprofen [Advil] 200 mg tablet 200 mg PO Q6H PRN Stand Alone Forms: Work/School Release
[2022-07-08] MEDS: Labetalol HCL 100 MG TABLET PO (14:51)
[2022-07-08 14:53] LABS: B Type Natriuretic Peptide 14 pg/mL (<100)
[2022-07-08 15:02] LABS: TSH reflex Free T4 1.81 uIU/mL (0.32-4.0)
[2022-07-08 15:39] LABS: Troponin-I High Sensitivity < 2.7 ng/L (<3.5-17.0)
--- NOTE | 2022-07-08 17:37 | PC.NURSE ---
pt dc- out in waiting room had a- ?syncopal episode witnessed by staff. caught by staff- no fall or head strike. pt is diaphoretic and pale. brought back to room 10
[2022-07-08 17:47] LABS: Glucose, Whole Blood 111 mg/dL (60-115)
[2022-07-08 19:26] LABS: Troponin-I High Sensitivity < 2.7 ng/L (<3.5-17.0)
--- NOTE | 2022-07-08 19:41 | ECG_ITS ---
Test Reason : WEAKNESS Blood Pressure : / mmHG Vent. Rate : 070 BPM Atrial Rate : 070 BPM P-R Int : 152 ms QRS Dur : 096 ms QT Int : 436 ms P-R-T Axes : 027 -12 -06 degrees QTc Int : 470 ms Normal sinus rhythm Nonspecific T wave abnormality Prolonged QT Abnormal ECG When compared with ECG of 08-JUL-2022 17:45, No significant change was found Referred By: Enriqueta Winslow Electronically Signed By:MADIHA MARTINEZ MD
--- NOTE | 2022-07-08 20:42 | PC.NURSE ---
Addendum entered by Helga Suarez 07/08/22 20:42: continued- pt reports feeling unsteady pt reports this feels like being off balanced this rn noted pt to be steady on feet. skin pwd. pt sat back down on stretcher BP 169/95 HR 66 Original Note: per dr ledbetter request this rn walked three laps with pt aw
--- NOTE | 2022-07-08 21:31 | PC.NURSE ---
vss. skin pwd. pt ambulatory at discharge. pt calm and cooperative. pt at bedside. pt provided with work note and discharge packet. pt verbalized understanding of discharge plan
== END 2022-07-08 21:33 | disposition home or self-care (01) ==
PROVIDERS: Physician Assistant; Emergency Provider Emergency Medicine; PCP Internal Medicine
DX: I10 Essential (primary) hypertension (principal); R00.1 Bradycardia, unspecified; E78.00 Pure hypercholesterolemia, unspecified; Z79.02 Long term (current) use of antithrombotics/antiplatelets; Z79.899 Other long term (current) drug therapy
CPT/HCPCS: 36415; 80048; 80076; 81003; 82947; 83735; 83880; 84443; 84484; 85025; 93005; 99283; 99285

== ENCOUNTER 2022-10-08 06:26 | Outpatient (REF) | payer BC, SELFPAY ==
[2022-10-08 07:47] LABS: Alanine Aminotransferase 13 U/L (0-31); Albumin Level 4.2 g/dL (3.5-5.0); Alkaline Phosphatase 56 U/L (39-117); Anion Gap 12 (12-20); Aspartate Amino Transferase 15 U/L (5-31); Bilirubin Total 0.5 mg/dL (0.0-1.0); Blood Urea Nitrogen 14 mg/dL (9-16); Calcium 9.7 mg/dL (8.4-10.2); Carbon Dioxide 27 mmol/L (22-29); Chloride 105 mmol/L (96-108); Cholesterol 177 mg/dL (<200); Estimated Glomerular Filt Rate > 60; Glucose Random 92 mg/dL (60-115); HDL Cholesterol 41 mg/dL (>40); LDL Cholesterol Calculated 108 mg/dL (<100); Sodium 140 mmol/L (135-145); Total Protein 6.8 g/dL (6.5-8.0); Triglycerides 140 mg/dL (<150)
[2022-10-08 08:32] LABS: Free T4 (Free Thyroxine) 1.02 ng/dL (0.71-1.85); Thyroid Stimulating Hormone 1.36 uIU/mL (0.32-4.0)
== END 2022-10-08 06:27 | disposition home or self-care (01) ==
LOC: HO.LAB 06:26
PROVIDERS: PCP Internal Medicine; Visit Provider Internal Medicine
DX: E03.9 Hypothyroidism, unspecified (principal); E78.00 Pure hypercholesterolemia, unspecified
CPT/HCPCS: 36415; 80053; 80061; 84439; 84443

== ENCOUNTER 2022-10-17 08:24 | Outpatient (AMB) | payer BC, SELFPAY ==
[2022-10-17 08:40] VITALS: BP 142/96; PULSE 72; O2SAT 98; BMI 28.1
--- NOTE | 2022-10-17 08:40 | MHC.PC.OV ---
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 Allergies Codeine Allergy (Unknown, Verified 10/17/22 08:41) Unknown naproxen [From Aleve] Allergy (Unknown, Verified 10/17/22 08:41) but no problems with advil simvastatin Allergy (Unknown, Verified 10/17/22 08:41) Unknown Medication List - Last Reconciled 10/17/22 by Marcos Kaba MD cholecalciferol (vitamin D3) 25 mcg PO DAILY ibuprofen (Advil) 200 mg PO Q6H PRN levothyroxine 75 mcg PO DAILY lisinopril 20 mg PO DAILY 30 days mometasone 0.1% 1 appl topical DAILY 14 days multivitamin 1 tab PO DAILY pravastatin 10 mg PO DAILY Tobacco use date assessed: 10/17/22 Dental Screening Dental Screen Date: 10/17/22 Did you have a dental visit in the last 12 months?: Yes Did you have a dental problem in the last 6 months where you did not have access to dental care?: No Was dental information given to patient?: Patient has dentist HPI 3 month f/u HPI Details 62-year-old overweight female with hypertension, hypercholesterolemia and hypothyroidism last seen in July 2022. Patient has mammogram is due December colonoscopy due this year. Patient is here for follow-up. Review of the notes was seen by the nurse practitioner in July 18 for an elevated blood pressure patient was sent home on amlodipine. COUNTS INCLUDE 234 BEDS AT THE [facility] Medical History (Updated 08/01/22 @ 18:01 by Marcos Kaba MD) Hypertension Fibroid GERD (gastroesophageal reflux disease) Hypothyroid Hypercholesterolemia Surgical History History of dilatation and curettage History of cholecystectomy H/O tubal ligation Family History Mother Renal cancer Father FH: prostate cancer Lewy body dementia Parkinson disease Paternal Grandmother Breast cancer Paternal Aunt Breast cancer Maternal Uncle FH: prostate cancer Maternal Grandfather CVA (cerebral vascular accident) Social History (Updated 07/01/22 @ 17:10 by Marcos Kaba MD) Housing: Apartment Alcohol intake: current Alcohol intake frequency: does not drink Patient Tobacco Use Status: Never used Tobacco e-Cigarette/Vaping Use: Never Used Second Hand Smoke Exposure: No Current occupational status: employed Cognitive needs: No Hearing needs: No Vision needs: No Questionnaire Thrive Questionnaire Date Thrive assessed: 07/01/22 AUDIT C Alcohol Use Questionnaire (AUDIT-C) 1. How often do you have a drink containing alcohol?: Monthly or less 2. How many drinks containing alcohol do you have on a typical day when you are drinking?: 1 or 2 3. How often do you have six or more drinks on one occasion?: Never Total Score: 1 MARYLOU-7 AMB Questionnaire MARYLOU-7 Date MARYLOU - 7 assessed: 07/01/22 Source: Developed by Drs. Olegario Ryan, Delaney Christine, Sai Lemus and colleagues, with an educational mark from [employer]. Physical exam (Primary Care) Vital Signs: Last Vital Signs Pulse 72 10/17/22 08:40 BP 142/96 H 10/17/22 08:40 Pulse Ox 98 10/17/22 08:40 Oxygen Delivery Method Room Air 10/17/22 08:40 BMI result Body Mass Index 28.1 Tobacco/Smoking Status: Tobacco use Status Tobacco use date assessed 10/17/22 10/17/22 08:46 Patient Tobacco Use Status Never used Tobacco 10/17/22 08:46 e-Cigarette/Vaping Use Never Used 10/17/22 08:46 Thrive Assessment: Date of Thrive Assessment Date Thrive assessed 07/01/22 10/17/22 08:46 Const General: alert; No acute distress Eyes Conjunctivae: conjunctivae normal Resp Auscultation: clear to auscultation bilaterally Cardio Rate: regular rate Rhythm: regular rhythm GI Inspection: Yes normal to inspection Extrem General: Yes normal to inspection and No edema Assessment and Plan Assessment & Plan (1) Hypertension: Code(s): I10 - Essential (primary) hypertension Plan: Continue with blood pressure medication. Decrease salt intake and exercise patient is presently taking lisinopril 10 mg once a day (2) Hypercholesterolemia: Code(s): E78.00 - Pure hypercholesterolemia, unspecified Plan: Avoid fried foods, chicken skin, eggs, butter margarine, pastries and meat. Be it pork or beef they have a lot of cholesterol LDL goal of less than 130 and triglyceride of less than 150. Patient is on pravastatin 10 mg once a day blood work done September 2022 (3) Hypothyroid: Code(s): E03.9 - Hypothyroidism, unspecified Qualifiers: Hypothyroidism type: acquired Qualified Code(s): E03.9 - Hypothyroidism, unspecified Plan: Continue with thyroid medication 75 mcg once a day (4) GERD (gastroesophageal reflux disease): Code(s): K21.9 - Gastro-esophageal reflux disease without esophagitis Qualifiers: Esophagitis presence: without esophagitis Qualified Code(s): K21.9 - Gastro-esophageal reflux disease without esophagitis Plan: Avoid the foods that causes that usually spicy foods, tomato products, juices, coffee, soda and foods that your sensitive to. After eating do not lie down, allow 3-4 hours before in lie down. And keep the head of bed above 30 degrees to avoid the acid from going up. (5) Colon cancer screening: Code(s): Z12.11 - Encounter for screening for malignant neoplasm of colon Plan: Patient's reminded about colonoscopy- Dr. Pickard Medications: Changed From lisinopril 10 mg PO DAILY 30 tabs 3RF I10 - Essential (primary) hypertension To lisinopril 20 mg PO DAILY 30 tabs 3RF 30 days I10 - Essential (primary) hypertension Coding Level of Care Code Est Pt Level 4 (90761) Diagnoses Hypertension I10 Hypercholesterolemia E78.00 Acquired hypothyroidism E03.9 Hypothyroidism type: acquired Gastroesophageal reflux disease without esophagitis K21.9 Esophagitis presence: without esophagitis Colon cancer screening Z12.11
== END 2022-10-17 09:15 | disposition home or self-care (01) ==
PROVIDERS: PCP Internal Medicine; Visit Provider Internal Medicine
DX: I10 Essential (primary) hypertension (principal); E78.00 Pure hypercholesterolemia, unspecified; E03.9 Hypothyroidism, unspecified; K21.9 Gastro-esophageal reflux disease without esophagitis; Z12.11 Encounter for screening for malignant neoplasm of colon
CPT/HCPCS: 99214

== ENCOUNTER 2022-12-02 09:01 | Day surgery (SDC) | payer BC, SELFPAY ==
[2022-11-28 11:56] VITALS: BMI 28.1
--- NOTE | 2022-12-01 09:26 | P.CONAN_ITS ---
Documented by User: Apolonia Serna NP 12/01/22 09:28 HPI - Anesthesia Eval Consult details Narrative: 62yo F for Colonoscopy PMFSH Active Problems Active Problems: All Active Problems (Updated 08/01/22 @ 18:01 by Marcos Kaba MD) Colon cancer screening (Acute) Hypercalcemia (Acute) Breast cancer screening by mammogram (Acute) Tinnitus (Acute) Annual physical exam (Acute) Hypertension (Acute) GERD (gastroesophageal reflux disease) (Acute) Hypothyroid (Acute) Hypercholesterolemia (Acute) Past Medical History Medical History Hypertension Fibroid GERD (gastroesophageal reflux disease) Hypothyroid Hypercholesterolemia Family History Family History Mother Renal cancer Father FH: prostate cancer Lewy body dementia Parkinson disease Paternal Grandmother Breast cancer Paternal Aunt Breast cancer Maternal Uncle FH: prostate cancer Maternal Grandfather CVA (cerebral vascular accident) Surgical History Surgical History H/O colonoscopy History of dilatation and curettage History of cholecystectomy H/O tubal ligation Social History Social History Housing: Apartment Alcohol intake: current Alcohol intake frequency: does not drink Patient Tobacco Use Status: Never used Tobacco e-Cigarette/Vaping Use: Never Used Second Hand Smoke Exposure: No Current occupational status: employed Cognitive needs: No Hearing needs: No Vision needs: No Meds Allergies Allergy/AdvReac Type Severity Reaction Status Date / Time Codeine Allergy Unknown Unknown Verified 10/17/22 08:41 naproxen [From Aleve] Allergy Unknown but no Verified 10/17/22 08:41 problems with advil simvastatin Allergy Unknown Unknown Verified 10/17/22 08:41 Home Medications Medication Instructions Recorded Confirmed Last Taken Type cholecalciferol (vitamin D3) 25 25 mcg PO DAILY 06/04/20 11/28/22 Unknown History mcg (1,000 unit) capsule multivitamin 1 tab PO DAILY 06/04/20 11/28/22 Unknown History ibuprofen 200 mg tablet (Advil) 200 mg PO Q6H PRN Pain 07/01/22 11/28/22 11/18/22 History Exam Exam Date and Time: December 01, 2022925 Height,Weight and Vital Signs: Height 5 ft 5 in Weight 76.657 kg Pertinent Lab Results Pertinent Lab Results: Laboratory Tests 07/08/22 10/08/22 12:06 06:41 WBC 6.4 Hgb 14.6 Hct 44.0 Plt Count 316 Sodium 140 Potassium 4.0 Chloride 105 Carbon Dioxide 27 BUN 14 Creatinine 0.82 Narrative Narrative: EKG 06/2022 Vent. Rate : 070 BPM Atrial Rate : 070 BPM P-R Int : 152 ms QRS Dur : 096 ms QT Int : 436 ms P-R-T Axes : 027 -12 -06 degrees QTc Int : 470 ms Normal sinus rhythm Nonspecific T wave abnormality Prolonged QT Abnormal ECG When compared with ECG of 08-JUL-2022 17:45, No significant change was found Assessment and Plan Assessment Anesthesia Assessment: Chart Reviewed Documented by User: Ellie Raphael MD 12/02/22 10:50 [facility] Active Problems Active Problems: All Active Problems (Updated 08/02/22 @ 09:50 by Ellie Raphael MD) Colon cancer screening (Acute) Hypercalcemia (Acute) Breast cancer screening by mammogram (Acute) Tinnitus (Acute) Annual physical exam (Acute) Hypertension (Acute) GERD (gastroesophageal reflux disease) (Acute) Hypothyroid (Acute) Hypercholesterolemia (Acute) Past Medical History Medical History Hypertension Fibroid GERD (gastroesophageal reflux disease) Hypothyroid Hypercholesterolemia Family History Family History Mother Renal cancer Father FH: prostate cancer Lewy body dementia Parkinson disease Paternal Grandmother Breast cancer Paternal Aunt Breast cancer Maternal Uncle FH: prostate cancer Maternal Grandfather CVA (cerebral vascular accident) Family history of problems with anesthesia: No Surgical History Surgical History H/O colonoscopy History of dilatation and curettage History of cholecystectomy H/O tubal ligation History of Problems with Anesthesia: No Social History Social History Housing: Apartment Alcohol intake: current Alcohol intake frequency: does not drink Patient Tobacco Use Status: Never used Tobacco e-Cigarette/Vaping Use: Never Used Second Hand Smoke Exposure: No Current occupational status: employed Cognitive needs: No Hearing needs: No Vision needs: No Meds Allergies Allergy/AdvReac Type Severity Reaction Status Date / Time Codeine Allergy Unknown Unknown Verified 10/17/22 08:41 naproxen [From Aleve] Allergy Unknown but no Verified 10/17/22 08:41 problems with advil simvastatin Allergy Unknown Unknown Verified 10/17/22 08:41 Home Medications Medication Instructions Recorded Confirmed Last Taken Type cholecalciferol (vitamin D3) 25 25 mcg PO DAILY 06/04/20 11/28/22 Unknown History mcg (1,000 unit) capsule multivitamin 1 tab PO DAILY 06/04/20 11/28/22 Unknown History ibuprofen 200 mg tablet (Advil) 200 mg PO Q6H PRN Pain 07/01/22 11/28/22 11/18/22 History Exam Height,Weight and Vital Signs: Height 5 ft 5 in Weight 76.657 kg Vital Signs Temp Pulse Resp BP Pulse Ox O2 Del Method 12/02/22 09:20 98.1 F 75 18 151/89 H 96 Room Air Airway Mallampati Class: II TM Dist: >3cm Neck ROM: Full Loose/Missing/Broken Teeth: No (Denies broken, loose, missing teeth) Heart: RRR Lungs: CTAB Assessment and Plan Assessment Anesthesia Assessment: Anesthesia Plan Discussed Final Anesthetic Review Family History of Problems with Anesthesia: No History of Problems with Anesthesia: No NPO: Yes ASA Class: II Final Preanesthetic Review: No Changes in Pt Med Stat, Meds/Allgs Chart Reviewed, Consent Obtained/Reviewed and Anes Risks/Benef Reviewed Patient Risk: Low Procedure Risk: Low Assessment/Block/Sedation in SS: Assess/Block/Sedation-SS Anesthetic Plan Anesthetic Plan: MAC: Disposition: Standard PACU
[2022-12-02 09:20] VITALS: BP 151/89; PULSE 75; RESP 18; TEMP 36.7; O2SAT 96; BMI 27.5
[2022-12-02] MEDS: Lactated Ringers 1,000 ML 100 ML IVCONT (09:44)
--- NOTE | 2022-12-02 10:11 | MHC.SHP ---
Pre-Procedural Eval Section A Date of Service: 12/02/22 Section B Chief Complaint: screening Details of Present Illness: see H&P no changes Relevant Family History (Specify if Yes): No Relevant Social History: None Present Medications: see Short Stay Collaborative assessment Medical History: No relevant PMH Allergies: Allergies Allergy/AdvReac Type Severity Reaction Status Date / Time Codeine Allergy Unknown Unknown Verified 10/17/22 08:41 naproxen [From Aleve] Allergy Unknown but no Verified 10/17/22 08:41 problems with advil simvastatin Allergy Unknown Unknown Verified 10/17/22 08:41 Review of Systems Sugical H&P ROS: Negative: Constitution, Cardiovascular, Respiratory, Neurological, Psychiatric, Hem-Onc, Allergic/Immunologic, Gastrointestinal, Genitourinary, Musculoskeletal, Integumentary, Endocrine and Eyes/Ears/Nose/Throat Exam Surgical H&P Exam: Normal: HEENT, Normal: Heart, Normal: Lungs, Normal: Extremities, Normal: Abdomen, Normal: Skin and Normal: Neurological Plan Diagnosis/Plan: Unchanged I have reviewed the history and physical and performed a pertinent physical examination on my patient. No changes have occurred unless specified. Time Spent With Patient Time: Total time managing care of this patient today ____ minutes.
--- NOTE | 2022-12-02 10:44 | P.BOP_ITS ---
Brief Operative Note Date of Service: 12/02/22 Pre-op diagnosis: screening Post-op diagnosis: same Procedure: colonoscopy Surgeon: Raheem Pickard MD Anesthesia: MAC Was an Care Information Associate used for this Procedure?: No Estimated blood loss (mL): 0 Pathology: other Condition: stable Disposition: PACU
[2022-12-02 10:52] VITALS: BP 120/74; PULSE 62; RESP 19; TEMP 36.6; O2SAT 98
--- NOTE | 2022-12-02 11:06 | OP_ITS ---
DATE OF SERVICE: 12/02/2022 SURGEON: Raheem Pickard MD INDICATIONS: Colon cancer screening. PREOPERATIVE DIAGNOSIS: POSTOPERATIVE DIAGNOSIS: PROCEDURE PERFORMED: Colonoscopy to the terminal ileum with snare polypectomy. ESTIMATED BLOOD LOSS: COMPLICATIONS: ANESTHESIA: Monitored anesthesia care. ASSISTANTS: SPECIMENS: DESCRIPTION OF PROCEDURE: A history and physical were performed. The risks and benefits of the procedure were explained to the patient. Informed consent was obtained. The patient was placed in the left lateral decubitus position. A digital rectal exam was performed and was found to be normal. The Olympus pediatric video colonoscope was introduced into the rectum and advanced to the cecum. The cecum was identified by transillumination, palpation, and identification of ileocecal valve. Examination was performed and the scope was removed. She tolerated the procedure well and was taken to recovery in stable condition. FINDINGS: The terminal ileum was examined and appeared normal. The visualized colonic mucosa was normal. The quality of the prep was good. A single polyp measuring approximately 8 mm was removed with a snare at 15 cm from the anal verge. No other polyps were identified. There was moderate sigmoid diverticulosis. Retroflexed examination showed small internal hemorrhoids. IMPRESSION: Colon polyp. RECOMMENDATION: Follow up the biopsy results. MD ALEX Chen/EMILIL / [id number]
[2022-12-02 11:07] VITALS: BP 120/78; PULSE 58; RESP 18; TEMP 36.6; O2SAT 98
== END 2022-12-02 11:41 | disposition home or self-care (01) ==
PROVIDERS: PCP Internal Medicine; Visit Provider Internal Medicine Gastroenterology
PROC: 0DJD8ZZ Inspection of Lower Intestinal Tract, Via Natural or Artificial Opening Endoscopic (ICD-10-PCS; CPT 45378; principal; 2022-12-02 10:30)
DX: Z12.11 Encounter for screening for malignant neoplasm of colon (principal); D12.7 Benign neoplasm of rectosigmoid junction; K57.30 Diverticulosis of large intestine without perforation or abscess without bleeding; K64.8 Other hemorrhoids; I10 Essential (primary) hypertension; K21.9 Gastro-esophageal reflux disease without esophagitis; E78.00 Pure hypercholesterolemia, unspecified; Z79.899 Other long term (current) drug therapy
CPT/HCPCS: 45385; 88305

== ENCOUNTER 2023-01-09 15:29 | Outpatient (AMB) | payer BC, SELFPAY ==
--- NOTE | 2023-01-09 15:48 | MHC.OFFVIS ---
Intake Vital Signs 01/09/23 15:49 Weight 166 lb Blood Pressure Location Lt brachial Position Sitting Intake Visit Reasons: Hypertension Allergies Codeine Allergy (Unknown, Verified 10/17/22 08:41) Unknown naproxen [From Aleve] Allergy (Unknown, Verified 10/17/22 08:41) but no problems with advil simvastatin Allergy (Unknown, Verified 10/17/22 08:41) Unknown lisinopril Adverse Reaction (Intermediate, Unverified 12/26/22 17:33) Cough PFSH Medical History Hypertension Fibroid GERD (gastroesophageal reflux disease) Hypothyroid Hypercholesterolemia Surgical History H/O colonoscopy History of dilatation and curettage History of cholecystectomy H/O tubal ligation Family History Mother Renal cancer Father FH: prostate cancer Lewy body dementia Parkinson disease Paternal Grandmother Breast cancer Paternal Aunt Breast cancer Maternal Uncle FH: prostate cancer Maternal Grandfather CVA (cerebral vascular accident) Social History Housing: Apartment Alcohol intake: current Alcohol intake frequency: does not drink Patient Tobacco Use Status: Never used Tobacco e-Cigarette/Vaping Use: Never Used Second Hand Smoke Exposure: No Current occupational status: employed Cognitive needs: No Hearing needs: No Vision needs: No Coding
[2023-01-09 15:49] VITALS: BP 172/110; PULSE 73; O2SAT 99; BMI 27.6
--- NOTE | 2023-01-09 15:51 | MHC.PC.OV ---
Vital Signs 01/09/23 15:49 01/09/23 17:38 Height 5 ft 5 in Weight 166 lb BMI 27.6 BP 172/110 H 180/108 H Blood Pressure Location Lt brachial Lt brachial Position Sitting Sitting Pulse 73 Pulse Source Pulse Oximeter Pulse Oximetry (%) 99 Oxygen Delivery Method Room Air Intake Visit Reasons: Hypertension [employer] Professional Required: No Allergies Codeine Allergy (Unknown, Verified 01/09/23 15:50) Unknown naproxen [From Aleve] Allergy (Unknown, Verified 01/09/23 15:50) but no problems with advil simvastatin Allergy (Unknown, Verified 01/09/23 15:50) Unknown amlodipine Adverse Reaction (Intermediate, Unverified 01/09/23 16:05) Swelling lisinopril Adverse Reaction (Intermediate, Verified 01/09/23 15:50) Cough Medication List - Last Reconciled 01/09/23 by Marcos Kaba MD cholecalciferol (vitamin D3) 25 mcg PO DAILY ibuprofen (Advil) 200 mg PO Q6H PRN levothyroxine 75 mcg PO DAILY losartan 50 mg PO DAILY mometasone 0.1% 1 appl topical DAILY 14 days multivitamin 1 tab PO DAILY pravastatin 10 mg PO DAILY Tobacco use date assessed: 01/09/23 Dental Screening Dental Screen Date: 01/09/23 Did you have a dental visit in the last 12 months?: Yes Did you have a dental problem in the last 6 months where you did not have access to dental care?: No Was dental information given to patient?: Patient has dentist HPI Hypertension HPI Details 63-year-old overweight female with a history of hypertension hypercholesterolemia hypothyroid and GERD last seen in October 2022. Patient was referred to Gastroenterology for colonoscopy had it done in November revealing tubular adenoma. Patient is here for physical exam BP med change 12/28/2022- had cough- but states had covid also . went back to work 3 days. will be retiring in February. but concern on the BP. 17:50 patient went back to the room because of dizziness palpitations denies any chest pains last meal was 11 noon and is feeling hungry. Noted to have an elevated blood pressure to 180 systolic blood pressure. Discussed with the patient on workup to be done. Offered ER but patient declined advised blood work as well as an x-ray and ultrasound of the kidneys Patient continued to feel bad presently and so advised to go to the emergency room [facility] Medical History (Updated 01/09/23 @ 16:03 by Marcos Kaba MD) Colon cancer screening Hypertension Fibroid GERD (gastroesophageal reflux disease) Hypothyroid Hypercholesterolemia Surgical History H/O colonoscopy History of dilatation and curettage History of cholecystectomy H/O tubal ligation Family History Mother Renal cancer Father FH: prostate cancer Lewy body dementia Parkinson disease Paternal Grandmother Breast cancer Paternal Aunt Breast cancer Maternal Uncle FH: prostate cancer Maternal Grandfather CVA (cerebral vascular accident) Social History (Updated 01/09/23 @ 16:08 by Marcos Kaba MD) Housing: Apartment Alcohol intake: current Alcohol intake frequency: does not drink Comment: once a month 1-2 glasses Patient Tobacco Use Status: Never used Tobacco e-Cigarette/Vaping Use: Never Used Second Hand Smoke Exposure: No Current occupational status: employed Cognitive needs: No Hearing needs: No Vision needs: No Questionnaire Thrive Questionnaire Date Thrive assessed: 07/01/22 AUDIT C Alcohol Use Questionnaire (AUDIT-C) 1. How often do you have a drink containing alcohol?: Monthly or less 2. How many drinks containing alcohol do you have on a typical day when you are drinking?: 1 or 2 3. How often do you have six or more drinks on one occasion?: Never Total Score: 1 MARYLOU-7 AMB Questionnaire MARYLOU-7 Date MARYLOU - 7 assessed: 07/01/22 Source: Developed by Drs. Olegario Ryan, Delaney Christine, Sai Lemus and colleagues, with an educational mark from [employer]. Review of Systems Const Denies poor appetite and Denies weakness Eyes Denies no additional complaints ENT Reports Normal hearing present, Denies dizziness, Denies nasal congestion, Denies tinnitus and Denies sore throat Card Denies chest pain, Denies syncope, Denies rapid heart rate and Denies dyspnea Resp Denies cough and Denies dyspnea GI Denies change in stool character, Reports constipation, Denies diarrhea, Denies nausea and Denies vomiting Denies urinary frequency, Denies difficulty voiding and Denies dysuria Neuro Reports Normal hearing present, Denies confusion, Denies dizziness, Denies syncope and Denies weakness Psych Denies confusion Physical exam (Primary Care) Vital Signs: Last Vital Signs Pulse 73 01/09/23 15:49 BP 172/110 H 01/09/23 15:49 Pulse Ox 99 01/09/23 15:49 Oxygen Delivery Method Room Air 01/09/23 15:49 BMI result Body Mass Index 27.6 Tobacco/Smoking Status: Tobacco use Status Tobacco use date assessed 01/09/23 01/09/23 15:53 Patient Tobacco Use Status Never used Tobacco 01/09/23 16:08 e-Cigarette/Vaping Use Never Used 01/09/23 16:08 Thrive Assessment: Date of Thrive Assessment Date Thrive assessed 07/01/22 01/09/23 15:53 Const General: alert; No acute distress or confusion Orientation/consciousness: No confusion Eyes Conjunctivae: conjunctivae normal Resp Auscultation: clear to auscultation bilaterally Cardio Rate: regular rate Rhythm: regular rhythm GI Inspection: Yes normal to inspection Neuro General: No confusion Cranial nerves: Yes Normal hearing present Extrem General: Yes normal to inspection and No edema Assessment and Plan Assessment & Plan (1) Annual physical exam: Code(s): Z00.00 - Encounter for general adult medical examination without abnormal findings (2) Hypertension: Code(s): I10 - Essential (primary) hypertension Plan: Continue with blood pressure medication. Decrease salt intake and exercise patient presently losartan 50 mg once a day (3) GERD (gastroesophageal reflux disease): Code(s): K21.9 - Gastro-esophageal reflux disease without esophagitis Qualifiers: Esophagitis presence: without esophagitis Qualified Code(s): K21.9 - Gastro-esophageal reflux disease without esophagitis Plan: Avoid the foods that causes that usually spicy foods, tomato products, juices, coffee, soda and foods that your sensitive to. After eating do not lie down, allow 3-4 hours before in lie down. And keep the head of bed above 30 degrees to avoid the acid from going up. (4) Hypothyroid: Code(s): E03.9 - Hypothyroidism, unspecified Qualifiers: Hypothyroidism type: acquired Qualified Code(s): E03.9 - Hypothyroidism, unspecified Plan: Continue with thyroid medication September 2022 last blood work (5) Hypercholesterolemia: Code(s): E78.00 - Pure hypercholesterolemia, unspecified Plan: Avoid fried foods, chicken skin, eggs, butter margarine, pastries and meat. Be it pork or beef they have a lot of cholesterol LDL goal of less than 130 and triglyceride of less than 150 patient on pravastatin 10 mg once a day Orders: Orders US renal BI Today I10 - Essential (primary) hypertension US renal doppler Today I10 - Essential (primary) hypertension Comprehensive Met. Panel Today I10 - Essential (primary) hypertension Free T4 (Free Thyroxine) Today I10 - Essential (primary) hypertension Thyroid Stimulating Hormone Today I10 - Essential (primary) hypertension Phosphorus Today I10 - Essential (primary) hypertension Complete Blood Count Auto Diff Today I10 - Essential (primary) hypertension Magnesium Today I10 - Essential (primary) hypertension XR chest 2V Today I10 - Essential (primary) hypertension Cortisol Random Today I10 - Essential (primary) hypertension UA CC w/rflx Micro + Cult Today I10 - Essential (primary) hypertension, R30.0 - Dysuria Coding Level of Care Code Est Pt Prev Care 40-64y(30788) Diagnoses Annual physical exam Z00.00 Hypertension I10 Gastroesophageal reflux disease without esophagitis K21.9 Esophagitis presence: without esophagitis Acquired hypothyroidism E03.9 Hypothyroidism type: acquired Hypercholesterolemia E78.00
[2023-01-09 17:38] VITALS: BP 180/108
== END 2023-01-09 16:29 | disposition home or self-care (01) ==
PROVIDERS: PCP Internal Medicine; Visit Provider Internal Medicine
DX: Z00.00 Encounter for general adult medical examination without abnormal findings (principal); I10 Essential (primary) hypertension; K21.9 Gastro-esophageal reflux disease without esophagitis; E03.9 Hypothyroidism, unspecified; E78.00 Pure hypercholesterolemia, unspecified
CPT/HCPCS: 99396

== ENCOUNTER 2023-01-09 18:07 | Emergency (ER) | payer BC, SELFPAY ==
--- NOTE | ~2023-01-09 | XR_ITS ---
EXAMINATION: XR CHEST CLINICAL INFORMATION: Shortness of breath COMPARISON: 01/16/2016 TECHNIQUE: 2 views of the chest were obtained. FINDINGS: The lungs are clear with no focal consolidation. No evidence of pneumothorax, pulmonary edema, or pleural effusions. Cardiac size is within normal limits. Small to moderate-sized hiatal hernia is noted. No acute osseous findings are seen. XR/XR chest 2V IMPRESSION: No acute cardiopulmonary findings. Small to moderate-sized hiatal hernia.
[2023-01-09 19:06] VITALS: BP 210/119; PULSE 81; RESP 18; TEMP 36.6; O2SAT 100; BMI 27.6
--- NOTE | 2023-01-09 19:06 | ED.GENADULT ---
HPI - General Adult General Chief complaint: Dizziness Stated complaint: hbp,dizziness Time Seen by Provider: 01/09/23 22:55 Source: patient, family, RN notes reviewed and old records reviewed Mode of arrival: ambulatory Limitations: no limitations History of Present Illness HPI narrative: 63-year-old female presents for evaluation of hypertension, dizziness and feeling ?shaky. ? Patient reports that she had previously been on amlodipine to manage her blood pressure. However she developed bilateral leg swelling so was switched to lisinopril 10 mg This was then subsequently increased to lisinopril 20 mg and then finally lisinopril 40 mg he over the last few weeks pain Two weeks ago the patient was switched to losartan monotherapy due to cough from the lisinopril She was at her PCP office earlier today for a blood pressure check as she was recently started on losartan Her blood pressure was elevated and when her primary doctor was checking orthostatic she became very dizzy. She reports that she vomited 1 time and has been having lightheadedness, dizziness and feeling ?shaky ever since. ? She denies any headaches all day today, denies any chest pain, shortness of breath no abdominal pain Denies any symptoms Related Data Home Medications Medication Instructions Recorded Confirmed cholecalciferol (vitamin D3) 25 25 mcg PO DAILY 06/04/20 01/09/23 mcg (1,000 unit) capsule multivitamin 1 tab PO DAILY 06/04/20 01/09/23 ibuprofen 200 mg tablet (Advil) 200 mg PO Q6H PRN Pain 07/01/22 01/09/23 Previous Rx's Medication Instructions Recorded mometasone 0.1 % topical cream 1 appl topical DAILY 14 days #45 01/26/20 grams levothyroxine 75 mcg tablet 75 mcg PO DAILY #90 tabs 06/25/22 pravastatin 10 mg tablet 10 mg PO DAILY #90 tabs 08/15/22 losartan 50 mg tablet 50 mg PO DAILY #30 tabs 12/26/22 losartan 100 mg tablet 100 mg PO DAILY #14 tabs 01/10/23 Allergies Allergy/AdvReac Type Severity Reaction Status Date / Time Codeine Allergy Unknown Unknown Verified 01/09/23 23:30 naproxen [From Aleve] Allergy Unknown but no Verified 01/09/23 23:30 problems with advil simvastatin Allergy Unknown Unknown Verified 01/09/23 23:30 amlodipine AdvReac Intermediate Swelling Verified 01/09/23 23:30 lisinopril AdvReac Intermediate Cough Verified 01/09/23 23:30 Review of Systems Constitutional: Constitutional: Denies body ache(s), Denies chills, Denies fever(s), Denies headache(s) and Reports weakness Eyes: Eyes: Denies blurry vision ENT: Reports vertigo, Reports dizziness, Denies headache(s) and Denies sore throat Cardiovascular: Cardiovascular: Denies chest pain and Denies dyspnea Respiratory: Respiratory: Denies cough and Denies dyspnea Gastrointestinal: Gastrointestinal: Denies abdominal pain, Denies nausea and Reports vomiting Musculoskeletal: Musculoskeletal: Denies back pain Neurologic: Reports vertigo, Reports dizziness, Denies headache(s) and Reports weakness PMFSH Past Medical History Medical History (Updated 01/09/23 @ 23:26 by Mio Rosas) Colon cancer screening Hypertension Fibroid GERD (gastroesophageal reflux disease) Hypothyroid Hypercholesterolemia Surgical History H/O colonoscopy History of dilatation and curettage History of cholecystectomy H/O tubal ligation Family History Family History Mother Renal cancer Father FH: prostate cancer Lewy body dementia Parkinson disease Paternal Grandmother Breast cancer Paternal Aunt Breast cancer Maternal Uncle FH: prostate cancer Maternal Grandfather CVA (cerebral vascular accident) Social History Social History (Updated 01/09/23 @ 16:08 by Marcos Kaba MD) Housing: Apartment Alcohol intake: current Alcohol intake frequency: holidays/special occasions only Comment: once a month 1-2 glasses Patient Tobacco Use Status: Never used Tobacco Smoked in Last 30 Days: No e-Cigarette/Vaping Use: Never Used Second Hand Smoke Exposure: No Use of substances other than those prescribed or required for medical reasons: No Advance Directives: Yes Advance Directives Information Provided: No Advance Directives on File: No Patient : No Current occupational status: employed Cognitive needs: No Hearing needs: No Vision needs: No Physical Exam ED Vital Signs: Vital Signs - 24 hr 01/09/23 19:06 01/09/23 22:42 01/09/23 23:17 Temperature 97.9 F Pulse Rate 81 76 75 Respiratory Rate 18 11 L Blood Pressure 210/119 H 205/115 H 173/107 H Pulse Oximetry 100 97 Oxygen Delivery Method Room Air Room Air BMI result Body Mass Index 27.6 Const General: healthy appearing, comfortable, no acute distress, alert and awake Nutritional Appearance: well nourished Orientation/consciousness: patient oriented x3 HENMT Head: Yes normocephalic and Yes atraumatic Eyes Eyelids: Yes eyelids normal Conjunctivae: conjunctivae normal Sclerae: sclerae normal Corneas: corneas normal Pupils: Equal, round and reactive pupils present EOM: EOMs intact bilaterally Direct Ophthalmoscopy: no photophobia and no papilledema Neck Neck: Yes full ROM Resp Effort & Inspection: normal respiratory effort, able to speak in complete sentences and not labored Cardio Rate: regular rate Rhythm: regular rhythm GI Inspection: No distended Palpation (GI): Soft to palpation, not firm, no guarding and not rigid Skin General skin exam: no rashes or lesions noted and elasticity normal Neuro General: patient oriented x3 Cranial nerves: Yes CN's II-XII intact bilaterally, Yes Equal, round and reactive pupils present and Yes Bilaterally intact EOM present Cognition (Neuro): normal cognition Extrem Other: Moving all extremities well without any obvious deformities Course Course Course Narrative: This is an RME: Additional HPI, ROS, PE not included below will be deferred to primary provider. Patient is a 63-year-old female who presents emergency department for hypertension and dizziness. She Reports discontinued lisinopril 2 weeks ago secondary to cough, and began taking losartan. She was at her primary care doctor's office require for re-evaluation normal in the hypertensive 180/108. Upon leaving the office she felt very dizzy in the parking lot and began vomiting. She has been having dizziness for a few days and tingling to the right hand, dizziness is worse with position change. She presented back into the doctor's office and was advised to have outpatient blood work, chest x-ray, and renal ultrasound tomorrow or to come to the emergency department for evaluation. She opted to come to the department. Denies CP. No focal neuro deficits on exam. triage BP 210/119 Plan: labs, EKG, charge entry made aware, pending placement in back Reevaluation(s) Reevaluation #1: Patient re-evaluated, her blood pressure significantly improved she reports her symptoms have completely improved. She is no longer dizzy, lightheaded, nauseous or shaking. Will check orthostatics prior to discharge the patient can safely be discharged he will have the patient increase her losartan from 50 mg daily to 100 mg daily and she will follow-up with PCP Time: 00:44 Medications Administered Discontinued Medications Generic Name Dose Route Start Last Admin Trade Name Jessica PRN Reason Stop Dose Admin Labetalol HCl 10 mg 01/09/23 23:09 01/09/23 23:31 Labetalol Hcl 100 Mg/20 Ml Vial IVPUSH 01/09/23 23:10 10 mg ONCE ONE Administration Medical Decision Making Medical Decision Making [facility] Narrative: 63-year-old female presents for evaluation dizziness, hypertension. On exam she has no neuro deficits. Her labs are significant for leukocytosis of 11.8 K failed left shift. Unclear etiology at this time. The patient has no known source of infection. Denies viral symptoms, denies abdominal pain. She did vomit 1 time but is nontender to palpation of the abdomen. Denies symptoms. Patient has no chemistry abnormalities, troponins negative, she has no chest pain. ACS has essentially been ruled out. EKG shows a sinus rhythm with a rate of 82 beats per minute. T-wave inversion in lead 3 and V3 through old V5. No reciprocal changes. no ST segment elevations or depressions. No change when compared to previous Differential Diagnosis Differential Diagnoses: The differential diagnosis associated with the presentation includes Hypertension hypertensive urgency Vertigo Dehydration Orthostasis ACS less likely Lab Data [facility] Lab Attestation statement: I reviewed the patient's lab results. Mild leukocytosis to 11.8 K. No anemia normal platelet count. No electrolyte abnormalities. 01/09/23 19:51 01/09/23 19:51 Labs: Lab Results 01/09/23 Range/Units 19:51 WBC 11.8 H (4.8-10.8) X10*3/uL RBC 5.14 (4.20-5.50) X10*6/uL Hgb 14.4 (12.0-16.0) g/dl Hct 41.8 (37.0-47.0) % MCV 81.3 (80.0-98.0) fL MCH 28.0 (27.0-33.0) pg MCHC 34.4 (31.0-35.0) g/dl RDW 12.5 (11.0-16.0) % Plt Count 355 (160-400) X10*3/uL MPV 8.8 L (9.4-12.3) fL Immature Gran % (Auto) 0.5 H (0.0-0.4) % Neut % (Auto) 83.1 H (45-73) % Lymph % (Auto) 10.2 L (20-40) % [place] % (Auto) 4.8 (2-11) % Eos % (Auto) 1.0 (0-4) % Baso % (Auto) 0.4 (0-2) % Lymph # (Auto) 1.2 (1.2-4.9) X10*3/uL [place] # (Auto) 0.6 (0.1-1.2) X10*3/uL Eos # (Auto) 0.1 (0.0-0.4) X10*3/uL Baso # (Auto) 0.1 (0.0-0.2) X10*3/uL Abs Immat Gran (auto) 0.06 H (0.00-0.03) X10*3/uL Absolute Neuts (auto) 9.8 H (2.0-8.3) x10*3/uL Absolute Nucleated RBC 0.000 (0.0-0.012) X10*3/uL Nucleated RBC % (auto) 0.0 (0.0-0.2) /100WBC PT 11.8 (11.1-13.3) SEC INR 1.0 (0.9-1.1) Sodium 141 (135-145) mmol/L Potassium 3.4 (3.3-5.1) mmol/L Chloride 106 (96-108) mmol/L Carbon Dioxide 25 (22-29) mmol/L Anion Gap 13 (12-20) BUN 10 (9-16) mg/dL Creatinine 0.80 (0.5-1.4) mg/dL Estim Creat Clear Calc 75.0 Estimated GFR > 60 Random Glucose 129 H (60-115) mg/dL Calcium 9.8 (8.4-10.2) mg/dL Magnesium 2.0 (1.6-2.6) mg/dL Total Bilirubin 0.6 (0.0-1.0) mg/dL AST 18 (5-31) U/L ALT 21 (0-31) U/L Alkaline Phosphatase 62 (39-117) U/L Troponin I High Sens < 2.7 (<3.5-17.0) ng/L B-Natriuretic Peptide 15 (<100) pg/mL Total Protein 7.5 (6.5-8.0) g/dL Albumin 4.6 (3.5-5.0) g/dL Independent Interpretation I performed an independent interpretation of an: EKG (Sinus rhythm with a rate of 82 beats per minute. No acute ischemia) Discharge Plan Discharge Clinical Impression: Hypertensive urgency Patient Disposition: Home, Self-Care Instructions: Hypertensive Crisis (ED) Additional Instructions: Your workup in the emergency department today was reassuring. Her chest x-ray was clear but you do have a small hiatal hernia Take losartan 100 mg daily until you can follow-up with your primary doctor Prescriptions: New losartan 100 mg tablet 100 mg PO DAILY Qty: 14 0RF No Action mometasone 0.1 % cream 1 appl topical DAILY 14 Days Qty: 45 0RF levothyroxine 75 mcg tablet 75 mcg PO DAILY Qty: 90 3RF pravastatin 10 mg tablet 10 mg PO DAILY Qty: 90 3RF losartan 50 mg tablet 50 mg PO DAILY Qty: 30 2RF cholecalciferol (vitamin D3) 25 mcg (1,000 unit) capsule 25 mcg PO DAILY multivitamin Tablet 1 tab PO DAILY ibuprofen [Advil] 200 mg tablet 200 mg PO Q6H PRN (Reason: Pain)
--- NOTE | 2023-01-09 19:11 | ECG_ITS ---
Test Reason : DIZZINESS Blood Pressure : / mmHG Vent. Rate : 082 BPM Atrial Rate : 082 BPM P-R Int : 142 ms QRS Dur : 092 ms QT Int : 402 ms P-R-T Axes : 028 -22 -27 degrees QTc Int : 469 ms Normal sinus rhythm Nonspecific T wave abnormality Abnormal ECG When compared with ECG of 08-JUL-2022 20:01, No significant change was found Referred By: Magui Parmar Electronically Signed By:MADIHA MARTINEZ MD
--- NOTE | 2023-01-09 19:52 | MHC.EDTECH ---
Labs and EKG obtained per orders and brought back to waiting area
--- OUTSIDE RECORDS SUMMARY | 2023-01-09 19:53 | XMS_ITS | Patient Health Record ---
Author Name Unknown Organization [facility] Address [address] [place] [address] Care Team Providers Care Door Worker Name Role Phone Po Marcos KEY Primary Care Provider Raheem Walker Jr Unavailable [phone] ALLERGIES Allergen (clinical drug ingredient) Drug/Non Drug Allergy documented on EMR Reaction Allergy Type Onset Date Status Latex Gloves Unknown Drug Allergy Acti ve codeine Codeine Sulfate Unknown Drug Allergy A ctive naproxen Aleve Unknown Drug Allergy Active RESULTS Component Value Reference Range Notes Pathology Reviewed date:12/04/2022 09:12:14 AM Interpretation: Performing Lab:[facility], [address] [place] [id number] Notes/Report: REASON FOR REFERRAL No Information MEDICATIONS Medication SIG (Take, Route, Frequency, Duration) Notes Start Date End Date Status Pravastatin Sodium 10mg Active Multi Vitamin/Minerals Active Levothyroxine Sodium 75mcg Active Vitamin D (Cholecalciferol) 25 MCG (1000 UT) 1 capsule Orally Once a day for 30 day(s) 10/27/2022 Active MiraLax (colon prep) 17 GM/SCOOP mixed with Gatorade or Crystal Light Orally begin at 5:00 p.m. the day before the procedure for 1 day 10/27/2022 Active Vitamin D3 1000iu Ac tive MoviPrep 100 GM as directed before colonoscopy Orally for 1 dose 07/23/2012 Active Lisinopril 20 MG TAKE 1 TABLET BY ESTIVEN TH EVERY DAY Oral for 90 Active Centrum Adult - as directed Orally 10/27/2022 Active IMMUNIZATIONS Vaccine Route Administration Date Status Comme nts Influenza Unknown 11/26/2021 Administered SOCIAL HISTORY Sex Assigned At : Social History Observation Description Sex Assigned At Unknown PROBLEMS Problem Type ICD Code Onset Dates Problem Status W/U Status Risk SNOMED Code Notes Problem Colon cancer screening (Z12.11) Active confirmed [id number] Problem Encounter for other preprocedural examination (Z01.818) Active confirmed [id number] Encounters Encounter Location Date Provider Diagnosis [facility] [address] [place] [id number] 12/02/2022 Raheem Pickard Jr Encounter for screening colonoscopy Z12.11 and Colon polyps K63.5 [facility] [address] [place] [id number] 10/27/2022 Raheem Pickard Jr Colon cancer screening Z12.11 and Encounter for other preprocedural examination Z01.818 [facility] [address] [place] [id number] 12/04/2022 Raheem Pickard Jr ASSESSMENTS Encounter Date Diagnosis Assessment Notes Treatment Notes Treatment Clinical Notes 12/02/2022 Encounter for screening colonoscopy (ICD-10 - Z12.11) 12/02/2022 Colon polyps (ICD-10 - K63.5) 10/27/2022 Colon cancer screening (ICD-10 - Z12.11) Colonoscopy material was printed 10/27/2022 Encounter for other preprocedural examination (ICD-10 - Z01.818) PLAN OF TREATMENT Future Test Test Name Order Date COLONOSCOPY 07/23/2012 COLONOSCOPY 10/27/2022 Insurance Providers Payer Name Payer Address Payer Phone Subscriber Number Group Number Insured Name Patient Relationship to Insured Coverage Start Date Coverage End Date [facility] [address] [place], [place] [id number] SHAKILA ZELAYA Self - patient is the insured MEDICAL (GENERAL) HISTORY Medical History History ICD Code Hypothyroidism Hyperlipidemia Hypertension Colonoscopy 11/21, diverticulosis, ten-y ear followup Surgical History Surgery Date(Month/Year) cholecystectomy tubal ligation myomectomy
[2023-01-09 19:58] LABS: MANUAL DIFF FLAG NO
[2023-01-09 20:00] LABS: Basophils Absolute Auto 0.1 X10*3/uL (0.0-0.2); Basophils Percent Auto 0.4 % (0-2); Eosinophils Absolute Auto 0.1 X10*3/uL (0.0-0.4); Hematocrit 41.8 % (37.0-47.0); Hemoglobin 14.4 g/dl (12.0-16.0); Imm Gran Abs Auto 0.06 X10*3/uL (0.00-0.03); Imm Gran Pct Auto 0.5 % (0.0-0.4); Lymphocytes Absolute Auto 1.2 X10*3/uL (1.2-4.9); Lymphocytes Percent Auto 10.2 % (20-40); Mean Corpuscular HGB Conc 34.4 g/dl (31.0-35.0); Mean Corpuscular Volume 81.3 fL (80.0-98.0); Mean Platelet Volume 8.8 fL (9.4-12.3); Monocytes Absolute Auto 0.6 X10*3/uL (0.1-1.2); Monocytes Percent Auto 4.8 % (2-11); Neutrophils Absolute Auto 9.8 x10*3/uL (2.0-8.3); Neutrophils Percent Auto 83.1 % (45-73); Platelet Count 355 X10*3/uL (160-400); Red Blood Count 5.14 X10*6/uL (4.20-5.50); Red Cell Distribution Width 12.5 % (11.0-16.0); White Blood Count 11.8 X10*3/uL (4.8-10.8)
[2023-01-09 20:09] LABS: Prothrombin Time 11.8 SEC (11.1-13.3)
[2023-01-09 20:22] LABS: Alanine Aminotransferase 21 U/L (0-31); Albumin Level 4.6 g/dL (3.5-5.0); Alkaline Phosphatase 62 U/L (39-117); Anion Gap 13 (12-20); Aspartate Amino Transferase 18 U/L (5-31); Bilirubin Total 0.6 mg/dL (0.0-1.0); Blood Urea Nitrogen 10 mg/dL (9-16); Calcium 9.8 mg/dL (8.4-10.2); Carbon Dioxide 25 mmol/L (22-29); Chloride 106 mmol/L (96-108); Estimated Glomerular Filt Rate > 60; Glucose Random 129 mg/dL (60-115); Potassium 3.4 mmol/L (3.3-5.1); Sodium 141 mmol/L (135-145); Total Protein 7.5 g/dL (6.5-8.0)
[2023-01-09 20:25] LABS: B Type Natriuretic Peptide 15 pg/mL (<100)
[2023-01-09 20:31] LABS: Troponin-I High Sensitivity < 2.7 ng/L (<3.5-17.0)
[2023-01-09 22:42] VITALS: BP 205/115; PULSE 76; RESP 11; O2SAT 97
--- NOTE | 2023-01-09 22:59 | PC.NURSE ---
this rn assumed care of pt from waiting room @ 2250. 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 morales clifford made aware of bp of 205/115. pt calm and cooperative family at bedside
[2023-01-09 23:17] VITALS: BP 173/107; PULSE 75
[2023-01-09] MEDS: Labetalol HCL 100 MG/20 ML VIAL 10 MG IVPUSH (23:31)
[2023-01-10 00:46] VITALS: BP 165/94; PULSE 61
[2023-01-10 00:48] VITALS: BP 176/110; PULSE 63
[2023-01-10 00:50] VITALS: BP 174/110; PULSE 69
[2023-01-10 00:52] VITALS: BP 165/94; PULSE 61; RESP 16; O2SAT 97
--- NOTE | 2023-01-10 01:39 | PC.NURSE ---
iv removed at discharge. pt at bedside. pt calm and cooperative. pt ambulatory at discharge. pt provided with discharge packet. pt verbalized understanding of discharge plan
== END 2023-01-10 01:43 | disposition home or self-care (01) ==
PROVIDERS: Nurse Practitioner Family; Emergency Provider Internal Medicine; PCP Internal Medicine
DX: I16.0 Hypertensive urgency (principal); R42 Dizziness and giddiness; R06.02 Shortness of breath; R11.2 Nausea with vomiting, unspecified; R94.31 Abnormal electrocardiogram [ECG] [EKG]; Z79.899 Other long term (current) drug therapy
CPT/HCPCS: 36415; 71046; 80053; 83735; 83880; 84484; 85025; 85610; 93005; 96374; 99284; J1920

== ENCOUNTER → 2023-01-09 19:11 | Outpatient (BNV) | payer BC, SELFPAY | PROVIDERS: Emergency Provider Internal Medicine; PCP Internal Medicine; Visit Provider Internal Medicine Cardiovascular Disease | DX: R94.31 Abnormal electrocardiogram [ECG] [EKG] (principal) | CPT/HCPCS: 93010 ==

== ENCOUNTER 2023-01-14 12:20 | Outpatient (REF) | payer BC, SELFPAY | END 2023-01-14 12:21 | disposition home or self-care (01) | LOC: HO.SH 12:20 | PROVIDERS: Visit Provider Internal Medicine | DX: Z01.118 Encounter for examination of ears and hearing with other abnormal findings (principal); H90.3 Sensorineural hearing loss, bilateral; H93.13 Tinnitus, bilateral | CPT/HCPCS: 92557 ==

== ENCOUNTER 2023-02-10 11:58 | Outpatient (AMB) | payer BC, SELFPAY ==
[2023-02-10 12:39] VITALS: BP 148/110; PULSE 62; O2SAT 98; BMI 27.8
--- NOTE | 2023-02-10 12:39 | A.OFFPC_ITS ---
Vital Signs 02/10/23 12:39 Height 5 ft 4.96 in Weight 167 lb 0.8 oz BMI 27.8 BP 148/110 H Blood Pressure Location Lt brachial Position Sitting Pulse 62 Pulse Source Pulse Oximeter Temp Source Skin Pulse Oximetry (%) 98 Oxygen Delivery Method Room Air Intake Visit Reasons: 1 month f/u Allergies Codeine Allergy (Unknown, Verified 02/10/23 12:42) Unknown naproxen [From Aleve] Allergy (Unknown, Verified 02/10/23 12:42) but no problems with advil simvastatin Allergy (Unknown, Verified 02/10/23 12:42) Unknown amlodipine Adverse Reaction (Intermediate, Verified 02/10/23 12:42) Swelling lisinopril Adverse Reaction (Intermediate, Verified 02/10/23 12:42) Cough Medication List - Last Reconciled 02/10/23 by Marcos Kaba MD cholecalciferol (vitamin D3) 25 mcg PO DAILY ibuprofen (Advil) 200 mg PO Q6H PRN levothyroxine 75 mcg PO DAILY losartan-hydrochlorothiazide 100-25 mg 1 tab PO DAILY meclizine 25 mg PO TID mometasone 0.1% 1 appl topical DAILY 14 days multivitamin 1 tab PO DAILY pravastatin 10 mg PO DAILY Tobacco use date assessed: 02/10/23 Dental Screening Dental Screen Date: 02/10/23 Did you have a dental visit in the last 12 months?: Yes Did you have a dental problem in the last 6 months where you did not have access to dental care?: No Was dental information given to patient?: Patient has dentist HPI 1 month f/u HPI Details 74-year-old overweight female with contr olled diabetes mellitus hypertension hypercholesterolemia last seen in October 2022. Patient comes in for follow-up ER visit right after blood work reassuring and was started on higher dose of the losartan for blood pressure control. BP at home has been elevated still. Running about 155 to as high as 170 over 85. Patient is also needing a letter for work as the blood pressure being controlled [facility] Medical History (Updated 02/10/23 @ 13:03 by Marcos Kaba MD) Colon cancer screening Hypertension Fibroid GERD (gastroesophageal reflux disease) Hypothyroid Hypercholesterolemia Surgical History H/O colonoscopy History of dilatation and curettage History of cholecystectomy H/O tubal ligation Family History Mother Renal cancer Father FH: prostate cancer Lewy body dementia Parkinson disease Paternal Grandmother Breast cancer Paternal Aunt Breast cancer Maternal Uncle FH: prostate cancer Maternal Grandfather CVA (cerebral vascular accident) Social History (Updated 01/09/23 @ 16:08 by Marcos Kaba MD) Housing: Apartment Alcohol intake: current Alcohol intake frequency: holidays/special occasions only Comment: once a month 1-2 glasses Patient Tobacco Use Status: Never used Tobacco e-Cigarette/Vaping Use: Never Used Second Hand Smoke Exposure: No Current occupational status: employed Cognitive needs: No Hearing needs: No Vision needs: No Questionnaire Thrive Questionnaire Date Thrive assessed: 07/01/22 AUDIT C Alcohol Use Questionnaire (AUDIT-C) 1. How often do you have a drink containing alcohol?: Monthly or less 2. How many drinks containing alcohol do you have on a typical day when you are drinking?: 1 or 2 3. How often do you have six or more drinks on one occasion?: Never Total Score: 1 MARYLOU-7 AMB Questionnaire MARYLOU-7 Date MARYLOU - 7 assessed: 07/01/22 Source: Developed by Drs. Olegario Ryan, Delaney Christine, Sai Lemus and colleagues, with an educational mark from [employer]. Physical exam (Primary Care) Vital Signs: Last Vital Signs Pulse 62 02/10/23 12:39 BP 148/110 H 02/10/23 12:39 Pulse Ox 98 02/10/23 12:39 Oxygen Delivery Method Room Air 02/10/23 12:39 BMI result Body Mass Index 27.8 Tobacco/Smoking Status: Tobacco use Status Tobacco use date assessed 02/10/23 02/10/23 12:45 Patient Tobacco Use Status Never used Tobacco 02/10/23 12:42 e-Cigarette/Vaping Use Never Used 02/10/23 12:42 Thrive Assessment: Date of Thrive Assessment Date Thrive assessed 07/01/22 02/10/23 12:42 Const General: alert; No acute distress Eyes Conjunctivae: conjunctivae normal Resp Auscultation: clear to auscultation bilaterally Cardio Rate: regular rate Rhythm: regular rhythm GI Inspection: Yes normal to inspection Extrem General: Yes normal to inspection and No edema Assessment and Plan Assessment & Plan (1) Hypertension: Code(s): I10 - Essential (primary) hypertension Plan: Continue with blood pressure medication. Decrease salt intake and exercise presently on losartan 100 mg once a day (2) Hypothyroid: Code(s): E03.9 - Hypothyroidism, unspecified Qualifiers: Hypothyroidism type: acquired Qualified Code(s): E03.9 - Hypothyroidism, unspecified Plan: Continue with thyroid medication (3) Hypercholesterolemia: Code(s): E78.00 - Pure hypercholesterolemia, unspecified Plan: Avoid fried foods, chicken skin, eggs, butter margarine, pastries and meat. Be it pork or beef they have a lot of cholesterol on pravastatin 10 mg once a day (4) Post-nasal drip: Code(s): R09.82 - Postnasal drip Medications: New losartan-hydrochlorothiazide 100-25 mg 1 tab PO DAILY 30 tabs 4RF I10 - Essential (primary) hypertension fluticasone propionate 50 mcg/actuation (Flonase Allergy Relief) administer into each nostril 2 sprays intranasal DAILY 16 grams 3RF R09.82 - Postnasal drip Refilled mometasone 0.1% 1 appl topical DAILY 14 days 45 grams 0RF I10 - Essential (primary) hypertension Discontinued losartan Discontinued Reason: Doctor's Order 100 mg PO DAILY 14 tabs 0RF losartan Discontinued Reason: Doctor's Order 50 mg PO DAILY 30 tabs 2RF I10 - Essential (primary) hypertension Coding Level of Care Code Est Pt Level 4 (35003) Diagnoses Hypertension I10 Acquired hypothyroidism E03.9 Hypothyroidism type: acquired Hypercholesterolemia E78.00 Post-nasal drip R09.82
== END 2023-02-10 13:19 | disposition home or self-care (01) ==
PROVIDERS: PCP Internal Medicine; Visit Provider Internal Medicine
DX: I10 Essential (primary) hypertension (principal); E03.9 Hypothyroidism, unspecified; E78.00 Pure hypercholesterolemia, unspecified; R09.82 Postnasal drip
CPT/HCPCS: 99214

== ENCOUNTER 2023-02-13 08:31 | Outpatient (REF) | payer BC, SELFPAY | END 2023-02-13 08:32 | disposition home or self-care (01) | LOC: HO.US 08:31 | PROVIDERS: PCP Internal Medicine; Visit Provider Internal Medicine | DX: I10 Essential (primary) hypertension (principal) | CPT/HCPCS: 76775; 93975 ==

== ENCOUNTER 2023-06-30 06:32 | Outpatient (REF) | payer BC, SELFPAY ==
[2023-06-30 08:13] LABS: Estimated Average Glucose 103 mg/dL; Hemoglobin A1c % 5.2 % (<6.0)
[2023-06-30 08:24] LABS: Alanine Aminotransferase 22 U/L (0-31); Albumin Level 4.3 g/dL (3.5-5.0); Alkaline Phosphatase 61 U/L (39-117); Anion Gap 16 (12-20); Aspartate Amino Transferase 20 U/L (5-31); Bilirubin Total 0.5 mg/dL (0.0-1.0); Blood Urea Nitrogen 14 mg/dL (9-16); Calcium 9.7 mg/dL (8.4-10.2); Carbon Dioxide 27 mmol/L (22-29); Chloride 103 mmol/L (96-108); Cholesterol 184 mg/dL (<200); Estimated Glomerular Filt Rate > 60; Glucose Random 95 mg/dL (60-115); HDL Cholesterol 46 mg/dL (>40); LDL Cholesterol Calculated 104 mg/dL (<100); Phosphorus 3.7 mg/dL (2.7-4.5); Potassium 3.7 mmol/L (3.3-5.1); Sodium 142 mmol/L (135-145); Triglycerides 172 mg/dL (<150)
[2023-06-30 08:40] LABS: Free T4 (Free Thyroxine) 0.92 ng/dL (0.71-1.85); Thyroid Stimulating Hormone 2.19 uIU/mL (0.32-4.0)
[2023-06-30 09:51] LABS: Appearance Urine Clear; Color Urine Yellow; Glucose Urine UA Negative (Negative); Leukocyte Esterase Urine Small (1+) (Negative); Nitrite Urine Negative (Negative); PH 7.5 (5.0-9.0); Specific Gravity - Urine 1.015 (1.005-1.025); UMIC TRIGGER UACC YES; Urine Blood Negative (Negative); Urine Ketones Negative (Negative); Urine Protein Negative (Neg-Trace)
[2023-06-30 10:11] LABS: Bacteria Urine None Seen (None Seen); Hyaline Casts Urine 0-2 /LPF (0-2); RBC Urine 0-2 /HPF (0-2); Squamous Epithelial Cell Urine 0-2 /HPF (0-2); UACC Culture Trigger YES; WBC Urine 0-5 /HPF (0-5)
== END 2023-06-30 06:33 | disposition home or self-care (01) ==
LOC: HO.LAB 06:32
PROVIDERS: PCP Internal Medicine; Visit Provider Internal Medicine
DX: Z13.1 Encounter for screening for diabetes mellitus (principal); I10 Essential (primary) hypertension; E78.00 Pure hypercholesterolemia, unspecified; R30.0 Dysuria
CPT/HCPCS: 36415; 80053; 80061; 81001; 82533; 83036; 83735; 84100; 84439; 84443; 87086; 87147

== ENCOUNTER 2023-07-07 10:42 | Outpatient (AMB) | payer BC, SELFPAY ==
--- NOTE | 2023-07-07 10:53 | MHC.PC.OV ---
Vital Signs 07/07/23 10:55 Height 5 ft 4 in Weight 169 lb 8 oz BMI 29.1 BP 120/82 Blood Pressure Location Lt brachial Position Sitting Pulse 78 Pulse Source Pulse Oximeter Pulse Oximetry (%) 98 Oxygen Delivery Method Room Air Intake Visit Reasons: pe Intake Note: Patient is here today for a physical. 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 Accompanied by: Self / Same As Patient Allergies Codeine Allergy (Unknown, Verified 07/07/23 10:55) Unknown naproxen [From Aleve] Allergy (Unknown, Verified 07/07/23 10:55) but no problems with advil simvastatin Allergy (Unknown, Verified 07/07/23 10:55) Unknown amlodipine Adverse Reaction (Intermediate, Verified 07/07/23 10:55) Swelling lisinopril Adverse Reaction (Intermediate, Verified 07/07/23 10:55) Cough Medication List - Last Reconciled 07/07/23 by Marcos Kaba MD cholecalciferol (vitamin D3) 25 mcg PO DAILY fluticasone propionate 50 mcg/actuation (Flonase Allergy Relief) 2 sprays intranasal DAILY ibuprofen (Advil) 200 mg PO Q6H PRN levothyroxine 75 mcg PO DAILY losartan-hydrochlorothiazide 100-25 mg 1 tab PO DAILY mometasone 0.1% 1 appl topical DAILY 14 days multivitamin 1 tab PO DAILY pravastatin 10 mg PO DAILY Tobacco use date assessed: 07/07/23 Dental Screening Dental Screen Date: 02/10/23 HPI pe HPI Details 63-year-old overweight female with a history of hypertension hypothyroid hypercholesterolemia coming in for physical exam. Last seen in 02/28/2023. Patient's mammogram is up-to-date colonoscopy done in 11/28/2022 having tubular adenoma. [facility] Medical History (Updated 02/16/23 @ 09:37 by Marcos Kaba MD) Colon cancer screening Hypertension Fibroid GERD (gastroesophageal reflux disease) Hypothyroid Hypercholesterolemia Surgical History H/O colonoscopy History of dilatation and curettage History of cholecystectomy H/O tubal ligation Family History Mother Renal cancer Father FH: prostate cancer Lewy body dementia Parkinson disease Paternal Grandmother Breast cancer Paternal Aunt Breast cancer Maternal Uncle FH: prostate cancer Maternal Grandfather CVA (cerebral vascular accident) Social History Housing: Apartment Alcohol intake: current Alcohol intake frequency: holidays/special occasions only Comment: once a month 1-2 glasses Patient Tobacco Use Status: Never used Tobacco e-Cigarette/Vaping Use: Never Used Second Hand Smoke Exposure: No service: No Current occupational status: employed Cognitive needs: No Hearing needs: No Vision needs: No Questionnaire PHQ-9 Over the last 2 weeks, how often have you been bothered by any of the following problems? 1. Little interest or pleasure in doing things: not at all 2. Feeling down, depressed, or hopeless: not at all 3. Trouble falling or staying asleep, or sleeping too much: not at all 4. Feeling tired or having little energy: not at all 5. Poor appetite or overeating: not at all 6. Feeling bad about yourself - or that you are a failure or have let yourself or your family down: not at all 7. Trouble concentrating on things, such as reading the newspaper or watching television: not at all 8. Moving or speaking so slowly that other people could have noticed. Or the opposite - being so fidgety or restless that you have been moving around a lot more than usual: not at all 9. Thoughts that you would be better off or of hurting yourself in some way: not at all Total score: 0 Depression Screening Interpretation: Negative Depression Screening Done: Yes Source: Developed by Drs. Olegario Ryan, Delaney Christine, Sai Lemus and colleagues, with an educational mark from [employer]. Thrive Questionnaire Date Thrive assessed: 07/07/23 I am a: Patient What is your living situation today?: I have a steady place to live Within the past 12 months, did the food you bought not last and you didn't have the money to get more?: Never true Within the past 12 months, did you worry whether your food would run out before you got money to buy more?: Never true Do you have trouble paying for medicines?: No Do you have trouble getting transportation to medical appointments?: No Do you have trouble paying your heating and electricity bill?: No Do you have trouble taking care of your child, family member or friend?: No Do you have trouble with day-to-day activities such as bathing, preparing meals, shopping, managing finances, etc.?: No Are you currently unemployed and looking for a job?: No Are you interested in more education?: No Currently or been in a relationship where the following occur: no concerns reported THRIVE Score: 0 AUDIT C Alcohol Use Questionnaire (AUDIT-C) 1. How often do you have a drink containing alcohol?: Monthly or less 2. How many drinks containing alcohol do you have on a typical day when you are drinking?: 1 or 2 Total Score: 1 MARYLOU-7 AMB Questionnaire MARYLOU-7 Date MARYLOU - 7 assessed: 07/07/23 Feeling nervous, anxious, or on edge: 0 = Not at all Not being able to stop or control worryin = Not at all Worrying too much about different things: 0 = Not at all Trouble relaxin = Not at all Being so restless that it is hard to sit still: 0 = Not at all Becoming easily annoyed or irritable: 0 = Not at all Feeling afraid as if something awful might happen: 0 = Not at all Total MARYLOU-7 score (0-4 normal; 5-9 mild; 10-14 moderate; 15-21 severe): 0 Source: Developed by Drs. Olegario Ryan, Delaney Christine, Sai Lemus and colleagues, with an educational mark from [employer]. Review of Systems Const Denies poor appetite and Denies weakness Eyes Denies no additional complaints ENT Reports Normal hearing present, Denies dizziness, Denies nasal congestion, Denies tinnitus and Denies sore throat Card Denies chest pain, Denies syncope, Denies rapid heart rate and Denies dyspnea Resp Denies cough and Denies dyspnea GI Denies change in stool character, Reports constipation, Denies diarrhea, Denies nausea and Denies vomiting Denies urinary frequency, Denies difficulty voiding and Denies dysuria Neuro Reports Normal hearing present, Denies confusion, Denies dizziness, Denies syncope and Denies weakness Psych Denies confusion Physical exam (Primary Care) Vital Signs: Last Vital Signs Pulse 78 07/07/23 10:55 BP 120/82 07/07/23 10:55 Pulse Ox 98 07/07/23 10:55 Oxygen Delivery Method Room Air 07/07/23 10:55 BMI result Body Mass Index 29.1 Tobacco/Smoking Status: Tobacco use Status Tobacco use date assessed 07/07/23 07/07/23 11:00 Patient Tobacco Use Status Never used Tobacco 07/07/23 11:00 e-Cigarette/Vaping Use Never Used 07/07/23 11:00 PHQ-9: PHQ-9 Score PHQ-9: Total score 0 07/07/23 11:00 Depression Screening Interpretation: Negative Thrive Assessment: Date of Thrive Assessment Date Thrive assessed 07/07/23 07/07/23 11:00 Currently or been in a relationship where the following occur: no concerns reported Const General: No confusion Orientation/consciousness: No confusion HENMT Head: Yes normocephalic Ears: external ears normal and TM's normal bilaterally Face and sinus: Yes normal facial exam Mouth: moist mucous membranes Throat: Yes tonsils normal Eyes Conjunctivae: conjunctivae normal Pupils: Equal, round and reactive pupils present and Pupil accommodation reflex normal Direct Ophthalmoscopy: normal light reflex Neck Neck: No lymphadenopathy Thyroid: Thyroid normal Chest Chest palpation & inspection: normal inspection of the chest Resp Effort & Inspection: normal respiratory effort and no audible wheezes Auscultation: clear to auscultation bilaterally, no crackles, no wheezes and lung sounds not diminished Cardio Rate: regular rate Rhythm: regular rhythm Peripheral pulses: radial pulses present and dorsalis pedis present GI Palpation (GI): no masses Auscultation: normal bowel sounds and normoactive bowel sounds Rectal Exam - Female: deferred Skin General skin exam: no rashes or lesions noted Rashes: no rashes Neuro General: No confusion Cranial nerves: Yes Equal, round and reactive pupils present and Yes Normal hearing present Cognition (Neuro): normal cognition Gait exam (Neuro): Normal gait present Motor exam (neuro): 5/5 motor strength present throughout Deep tendon reflexes (DTR's): Right brachioradialis reflex intensity grade: 2+, Left brachioradialis reflex intensity grade: 2+, Right patellar reflex intensity grade: 2+ and Left patellar reflex intensity grade: 2+ Extrem General: No edema Assessment and Plan Assessment & Plan (1) Annual physical exam: Code(s): Z00.00 - Encounter for general adult medical examination without abnormal findings (2) Hypertension: Code(s): I10 - Essential (primary) hypertension Plan: Continue with blood pressure medication. Decrease salt intake and exercise ultrasound of the kidneys was done revealing no suggestion of renal artery stenosis on losartan hydrochlorothiazide 100/25. (3) Hypothyroid: Code(s): E03.9 - Hypothyroidism, unspecified Qualifiers: Hypothyroidism type: acquired Qualified Code(s): E03.9 - Hypothyroidism, unspecified Plan: Continue with thyroid medication (4) Hypercholesterolemia: Code(s): E78.00 - Pure hypercholesterolemia, unspecified Plan: Avoid fried foods, chicken skin, eggs, butter margarine, pastries and meat. Be it pork or beef they have a lot of cholesterol LDL goal of less than 130 and triglyceride of less than 150 on pravastatin 10 mg once a day (5) GERD (gastroesophageal reflux disease): Code(s): K21.9 - Gastro-esophageal reflux disease without esophagitis Qualifiers: Esophagitis presence: without esophagitis Qualified Code(s): K21.9 - Gastro-esophageal reflux disease without esophagitis Plan: Avoid the foods that causes that usually spicy foods, tomato products, juices, coffee, soda and foods that your sensitive to. After eating do not lie down, allow 3-4 hours before in lie down. And keep the head of bed above 30 degrees to avoid the acid from going up. (6) Hepatic steatosis: Comment: February 2022 ultrasound Code(s): K76.0 - Fatty (change of) liver, not elsewhere classified Plan: Low-fat diet and exercise Medications: Refilled pravastatin 10 mg PO DAILY 90 tabs 3RF E78.00 - Pure hypercholesterolemia, unspecified levothyroxine 75 mcg PO DAILY 90 tabs 3RF E03.9 - Hypothyroidism, unspecified fluticasone propionate 50 mcg/actuation (Flonase Allergy Relief) administer into each nostril 2 sprays intranasal DAILY 16 grams 3RF R09.82 - Postnasal drip Coding Level of Care Code Est Pt Prev Care 40-64y(21640) Diagnoses Annual physical exam Z00.00 Hypertension I10 Acquired hypothyroidism E03.9 Hypothyroidism type: acquired Hypercholesterolemia E78.00 Gastroesophageal reflux disease without esophagitis K21.9 Esophagitis presence: without esophagitis Hepatic steatosis K76.0
[2023-07-07 10:55] VITALS: BP 120/82; PULSE 78; O2SAT 98; BMI 29.1
== END 2023-07-07 11:32 | disposition home or self-care (01) ==
PROVIDERS: PCP Internal Medicine; Visit Provider Internal Medicine
DX: Z00.00 Encounter for general adult medical examination without abnormal findings (principal); I10 Essential (primary) hypertension; E03.9 Hypothyroidism, unspecified; E78.00 Pure hypercholesterolemia, unspecified; K21.9 Gastro-esophageal reflux disease without esophagitis; K76.0 Fatty (change of) liver, not elsewhere classified
CPT/HCPCS: 99396

== ENCOUNTER 2024-07-07 06:42 | Outpatient (REF) | payer BC, SELFPAY ==
[2024-07-07 07:06] LABS: MANUAL DIFF FLAG NO
[2024-07-07 07:38] LABS: Basophils Absolute Auto 0.1 X10*3/uL (0.0-0.2); Basophils Percent Auto 0.9 % (0-2); Eosinophils Absolute Auto 0.2 X10*3/uL (0.0-0.4); Eosinophils Percent Auto 4.5 % (0-4); Hematocrit 39.3 % (37.0-47.0); Hemoglobin 13.6 g/dl (12.0-16.0); Imm Gran Abs Auto 0.03 X10*3/uL (0.00-0.03); Imm Gran Pct Auto 0.6 % (0.0-0.4); Lymphocytes Absolute Auto 1.5 X10*3/uL (1.2-4.9); Lymphocytes Percent Auto 28.6 % (20-40); Mean Corpuscular HGB Conc 34.6 g/dl (31.0-35.0); Mean Corpuscular Hemoglobin 28.9 pg (27.0-33.0); Mean Corpuscular Volume 83.4 fL (80.0-98.0); Mean Platelet Volume 8.9 fL (9.4-12.3); Monocytes Absolute Auto 0.5 X10*3/uL (0.1-1.2); Monocytes Percent Auto 8.9 % (2-11); Neutrophils Percent Auto 56.5 % (45-73); Platelet Count 312 X10*3/uL (160-400); Red Blood Count 4.71 X10*6/uL (4.20-5.50); Red Cell Distribution Width 13.1 % (11.0-16.0); White Blood Count 5.3 X10*3/uL (4.8-10.8)
[2024-07-07 07:41] LABS: Appearance Urine Clear; Color Urine Yellow; Glucose Urine UA Negative (Negative); Leukocyte Esterase Urine Trace (Negative); Nitrite Urine Negative (Negative); UMIC TRIGGER UACC YES; Urine Blood Negative (Negative); Urine Ketones Negative (Negative); Urine Protein Negative (Neg-Trace)
[2024-07-07 07:46] LABS: Bacteria Urine None Seen (None Seen); Hyaline Casts Urine 0-2 /LPF (0-2); RBC Urine 0-2 /HPF (0-2); Squamous Epithelial Cell Urine 0-2 /HPF (0-2); WBC Urine 0-5 /HPF (0-5)
[2024-07-07 07:51] LABS: Estimated Average Glucose 100 mg/dL; Hemoglobin A1C 112.9914 umol/L; Hemoglobin A1c % 5.1 % (<6.0); Total Hemoglobin (HGBA1C) 3530.5093 umol/L
[2024-07-07 08:08] LABS: Alanine Aminotransferase 26 U/L (0-31); Albumin Level 4.4 g/dL (3.5-5.0); Alkaline Phosphatase 66 U/L (39-117); Anion Gap 14 (12-20); Aspartate Amino Transferase 25 U/L (5-31); Bilirubin Total 0.5 mg/dL (0.0-1.0); Blood Urea Nitrogen 8 mg/dL (9-16); Calcium 9.7 mg/dL (8.4-10.2); Carbon Dioxide 27 mmol/L (22-29); Chloride 105 mmol/L (96-108); Cholesterol 188 mg/dL (<200); Estimated Glomerular Filt Rate > 60; Glucose Random 94 mg/dL (60-115); HDL Cholesterol 39 mg/dL (>40); LDL Cholesterol Calculated 110 mg/dL (<100); Potassium 3.7 mmol/L (3.3-5.1); Sodium 142 mmol/L (135-145); Total Protein 6.9 g/dL (6.5-8.0); Triglycerides 199 mg/dL (<150)
[2024-07-07 08:23] LABS: Free T4 (Free Thyroxine) 0.99 ng/dL (0.71-1.85); Vitamin D 25-OH Total 51.4 ng/mL (>30)
[2024-07-07 08:37] LABS: Folate 14.9 ng/mL (> or = 4.0); Vitamin B12 554 pg/mL (200-900)
== END 2024-07-07 06:43 | disposition home or self-care (01) ==
LOC: HO.LAB 06:42
PROVIDERS: PCP Internal Medicine; Visit Provider Internal Medicine
DX: E78.00 Pure hypercholesterolemia, unspecified (principal); K76.0 Fatty (change of) liver, not elsewhere classified; Z13.1 Encounter for screening for diabetes mellitus
CPT/HCPCS: 36415; 80053; 80061; 81001; 82306; 82607; 82746; 83036; 84439; 84443; 85025

== ENCOUNTER 2024-07-13 08:13 | Outpatient (AMB) | payer BC, SELFPAY ==
--- NOTE | 2024-07-13 08:19 | MHC.PC.OV ---
Vital Signs 07/13/24 08:20 Height 5 ft 4 in Weight 171 lb 8 oz BMI 29.4 BP 120/64 Blood Pressure Location Lt brachial Position Sitting Pulse 68 Pulse Source Pulse Oximeter Temp 97.1 F Temp Source Temporal Artery Scan Pulse Oximetry (%) 98 Oxygen Delivery Method Room Air Intake Visit Reasons: PE Intake Note: Patient is here today for a physical. 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: Not Required per policy Accompanied by: Self / Same As Patient Allergies Codeine Allergy (Unknown, Verified 07/13/24 08:20) Unknown naproxen [From Aleve] Allergy (Unknown, Verified 07/13/24 08:20) but no problems with advil simvastatin Allergy (Unknown, Verified 07/13/24 08:20) Unknown amlodipine Adverse Reaction (Intermediate, Verified 07/13/24 08:20) Swelling lisinopril Adverse Reaction (Intermediate, Verified 07/13/24 08:20) Cough Medication List - Last Reconciled 07/13/24 by Marcos Kaba MD cholecalciferol (vitamin D3) 25 mcg PO DAILY fluticasone propionate 50 mcg/actuation (Flonase Allergy Relief) 2 sprays intranasal DAILY ibuprofen (Advil) 200 mg PO Q6H PRN levothyroxine 75 mcg PO DAILY losartan-hydrochlorothiazide 100-25 mg TAKE 1 TABLET BY MOUTH EVERY DAY mometasone 0.1% 1 appl topical DAILY 14 days multivitamin 1 tab PO DAILY pravastatin 10 mg PO DAILY Tobacco use date assessed: 07/13/24 Dental Screening Dental Screen Date: 07/13/24 Did you have a dental visit in the last 12 months?: Yes Did you have a dental problem in the last 6 months where you did not have access to dental care?: No Was dental information given to patient?: Patient has dentist [facility] Medical History (Updated 02/16/23 @ 09:37 by Marcos Kaba MD) Colon cancer screening Hypertension Fibroid GERD (gastroesophageal reflux disease) Hypothyroid Hypercholesterolemia Surgical History H/O colonoscopy History of dilatation and curettage History of cholecystectomy H/O tubal ligation Family History Mother Renal cancer Father FH: prostate cancer Lewy body dementia Parkinson disease Paternal Grandmother Breast cancer Paternal Aunt Breast cancer Maternal Uncle FH: prostate cancer Maternal Grandfather CVA (cerebral vascular accident) Social History Housing: Apartment Alcohol intake: current Alcohol intake frequency: holidays/special occasions only Comment: once a month 1-2 glasses Patient Tobacco Use Status: Never used Tobacco e-Cigarette/Vaping Use: Never Used Second Hand Smoke Exposure: No service: No Current occupational status: employed Cognitive needs: No Hearing needs: No Vision needs: Yes (Glasses) Questionnaire PHQ-9 Over the last 2 weeks, how often have you been bothered by any of the following problems? 1. Little interest or pleasure in doing things: not at all 2. Feeling down, depressed, or hopeless: not at all 3. Trouble falling or staying asleep, or sleeping too much: not at all 4. Feeling tired or having little energy: not at all 5. Poor appetite or overeating: not at all 6. Feeling bad about yourself - or that you are a failure or have let yourself or your family down: not at all 7. Trouble concentrating on things, such as reading the newspaper or watching television: not at all 8. Moving or speaking so slowly that other people could have noticed. Or the opposite - being so fidgety or restless that you have been moving around a lot more than usual: not at all 9. Thoughts that you would be better off or of hurting yourself in some way: not at all Total score: 0 Depression Screening Interpretation: Negative Depression Screening Done: Yes Source: Developed by Drs. Olegario Ryan, Delaney Christine, Sai Lemus and colleagues, with an educational mark from [employer]. Thrive Questionnaire Date Thrive assessed: 07/13/24 I am a: Patient What is your living situation today?: I have a steady place to live Within the past 12 months, did the food you bought not last and you didn't have the money to get more?: Never true Within the past 12 months, did you worry whether your food would run out before you got money to buy more?: Never true Do you have trouble paying for medicines?: No Do you have trouble getting transportation to medical appointments?: No Do you have trouble paying your heating and electricity bill?: No Do you have trouble taking care of your child, family member or friend?: No Do you have trouble with day-to-day activities such as bathing, preparing meals, shopping, managing finances, etc.?: No Are you currently unemployed and looking for a job?: No Are you interested in more education?: No Please select the resources that you would like help with: None Currently or been in a relationship where the following occur: No concerns reported THRIVE Score: 0 AUDIT C Alcohol Use Questionnaire (AUDIT-C) 1. How often do you have a drink containing alcohol?: Monthly or less 2. How many drinks containing alcohol do you have on a typical day when you are drinking?: 1 or 2 3. How often do you have six or more drinks on one occasion?: Never Total Score: 1 MARYLOU-7 AMB Questionnaire MARYLOU-7 Date MARYLOU - 7 assessed: 07/13/24 Feeling nervous, anxious, or on edge: 0 = Not at all Not being able to stop or control worryin = Not at all Worrying too much about different things: 0 = Not at all Trouble relaxin = Not at all Being so restless that it is hard to sit still: 0 = Not at all Becoming easily annoyed or irritable: 0 = Not at all Feeling afraid as if something awful might happen: 0 = Not at all Total MARYLOU-7 score (0-4 normal; 5-9 mild; 10-14 moderate; 15-21 severe): 0 Source: Developed by Drs. Olegario Ryan, Delaney Christine, Sai Lemus and colleagues, with an educational mark from [employer]. Review of Systems Const Denies poor appetite and Denies weakness Eyes Denies no additional complaints ENT Reports Normal hearing present, Denies dizziness, Denies nasal congestion, Denies tinnitus and Denies sore throat Card Denies chest pain, Denies syncope, Denies rapid heart rate and Denies dyspnea Resp Denies cough and Denies dyspnea GI Denies change in stool character, Reports constipation, Denies diarrhea, Denies nausea and Denies vomiting Denies urinary frequency, Denies difficulty voiding and Denies dysuria Neuro Reports Normal hearing present, Denies confusion, Denies dizziness, Denies syncope and Denies weakness Psych Denies confusion Physical exam (Primary Care) Vital Signs: Last Vital Signs Temp 97.1 F 07/13/24 08:20 Pulse 68 07/13/24 08:20 BP 120/64 07/13/24 08:20 Pulse Ox 98 07/13/24 08:20 Oxygen Delivery Method Room Air 07/13/24 08:20 BMI result Body Mass Index 29.4 Tobacco/Smoking Status: Tobacco use Status Tobacco use date assessed 07/13/24 07/13/24 08:25 Patient Tobacco Use Status Never used Tobacco 07/13/24 08:25 e-Cigarette/Vaping Use Never Used 07/13/24 08:25 PHQ-9: PHQ-9 Score PHQ-9: Total score 0 07/13/24 08:25 Depression Screening Interpretation: Negative Thrive Assessment: Date of Thrive Assessment Date Thrive assessed 07/13/24 07/13/24 08:25 Currently or been in a relationship where the following occur: No concerns reported Const General: No confusion Orientation/consciousness: No confusion HENMT Head: Yes normocephalic Ears: external ears normal and TM's normal bilaterally Face and sinus: Yes normal facial exam Mouth: moist mucous membranes Throat: Yes tonsils normal Eyes Conjunctivae: conjunctivae normal Pupils: Equal, round and reactive pupils present and Pupil accommodation reflex normal Direct Ophthalmoscopy: normal light reflex Neck Neck: No lymphadenopathy Thyroid: Thyroid normal Chest Chest palpation & inspection: normal inspection of the chest Resp Effort & Inspection: normal respiratory effort and no audible wheezes Auscultation: clear to auscultation bilaterally, no crackles, no wheezes and lung sounds not diminished Cardio Rate: regular rate Rhythm: regular rhythm Peripheral pulses: radial pulses present and dorsalis pedis present GI Palpation (GI): no masses Auscultation: normal bowel sounds and normoactive bowel sounds Rectal Exam - Female: deferred Skin General skin exam: no rashes or lesions noted Rashes: no rashes Neuro General: No confusion Cranial nerves: Yes Equal, round and reactive pupils present and Yes Normal hearing present Cognition (Neuro): normal cognition Gait exam (Neuro): Normal gait present Motor exam (neuro): 5/5 motor strength present throughout Deep tendon reflexes (DTR's): Right brachioradialis reflex intensity grade: 2+, Left brachioradialis reflex intensity grade: 2+, Right patellar reflex intensity grade: 2+ and Left patellar reflex intensity grade: 2+ Extrem General: No edema Coding Level of Care Code Est Pt Prev Care 40-64y(15565) Diagnoses Annual physical exam Z00. Breast cancer screening by mammogram Z12. Hypertension I10 Acquired hypothyroidism E03.9 Hypothyroidism type: acquired Hypercholesterolemia E78.00 Gastroesophageal reflux disease without esophagitis K21.9 Esophagitis presence: without esophagitis Hepatic steatosis K76.0 Assessment & Plan Assessment & Plan (1) Annual physical exam: Code(s): Z00.00 - Encounter for general adult medical examination without abnormal findings Category: Medical Plan: Patient is advised to eat healthy, keep well hydrated, keep active and have adequate sleep. (2) Breast cancer screening by mammogram: Code(s): Z. - Encounter for screening mammogram for malignant neoplasm of breast Category: Medical Plan: Patient is reminded about mammogram (3) Hypertension: Code(s): I10 - Essential (primary) hypertension Category: Medical Plan: Continue with blood pressure medication. Decrease salt intake and exercise patient is on losartan hydrochlorothiazide 100/25 mg once a day (4) Hypothyroid: Code(s): E03.9 - Hypothyroidism, unspecified Category: Medical Qualifiers: Hypothyroidism type: acquired Qualified Code(s): E03.9 - Hypothyroidism, unspecified Plan: Continue with thyroid medication (5) Hypercholesterolemia: Code(s): E78.00 - Pure hypercholesterolemia, unspecified Category: Medical Plan: Avoid fried foods, chicken skin, eggs, butter margarine, pastries and meat. Be it pork or beef they have a lot of cholesterol presently on pravastatin 10 mg once a day LDL goal of less than 130 and triglyceride of less than 150. (6) GERD (gastroesophageal reflux disease): Code(s): K21.9 - Gastro-esophageal reflux disease without esophagitis Category: Medical Qualifiers: Esophagitis presence: without esophagitis Qualified Code(s): K21.9 - Gastro-esophageal reflux disease without esophagitis Plan: Avoid the foods that causes that usually spicy foods, tomato products, juices, coffee, soda and foods that your sensitive to. After eating do not lie down, allow 3-4 hours before in lie down. And keep the head of bed above 30 degrees to avoid the acid from going up. (7) Hepatic steatosis: Comment: February 2022 ultrasound Code(s): K76.0 - Fatty (change of) liver, not elsewhere classified Category: Medical Plan: Low-fat diet and exercise Plan History of Present Illness The patient is a 64-year-old female presenting for a routine wellness visit and management of chronic conditions, including essential hypertension, hypothyroidism, hypercholesterolemia, GERD, and hepatic steatosis. The patient's hypertension is controlled on Losartan, and her thyroid function is stable on Levothyroxine. Her cholesterol management with Pravastatin has been effective in maintaining an LDL level at goal, though her triglycerides are above the target. She adheres to a low-fat diet and exercise regimen to manage her GERD, with only occasional heartburn. The history of bursitis in her left knee stems from prolonged standing, with the condition mostly resolved. She maintains regular colonoscopy screenings but requires a current mammogram. Health Maintenance - ADVISED: Mammogram is overdue, recommend scheduling as soon as possible. - COMPLETED: Colonoscopy up to date, completed November 2022. - VACCINATIONS: Discussed shingles vaccination; first of two-part series recommended, pharmacy-based administration suggested. - BLOOD WORK: Most recent labs showed normal blood count, electrolytes, renal function, liver function, glucose levels, and thyroid levels. - LIFESTYLE: Encouraged ongoing low-fat diet, exercise, and reduction of alcohol intake. - DRIVING SAFETY: Addressed potential vision issues affecting driving at night. Social History - Marital Status: Lives with spouse. - Alcohol Use: Consumes once a month, about 1-2 glasses and sometimes less. - Tobacco Use: Denies smoking history. - Recreational Drugs: Denies use. - Exercise: Regular walking and stretching; recently decreased due to weather, plans to resume. - Diet: Low-fat diet adherence, plans to reduce weight. - Hearing: Reports loss, denies need for hearing aid. - Family Cancer History: Mother had kidney cancer, father had prostate cancer, grandmother had breast cancer, uncle had prostate cancer. 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 Review of Systems - Constitutional: Denies fever or weight change. - HEENT: Reports previous sore throat attributed to probable viral etiology; reports hearing loss, denies current need for a hearing aid; denies vision changes. - Cardiovascular: Denies chest pain, no history of syncope. - Respiratory: Denies shortness of breath or wheezing. - Gastrointestinal: Reports occasional heartburn; denies nausea or vomiting; reports regular bowel movements, no blood in stools. - Genitourinary: Denies urinary symptoms; wakes twice at night to urinate. - Musculoskeletal: Reports history of left knee bursitis; occasional hip arthritis pain. - Dermatologic: Notes occasional skin swelling due to mosquito bites. - Neurological: Denies dizziness or syncope. - Psychiatric: Denies depression or anxiety. Physical Exam General: Cooperative, healthy appearing, comfortable, no acute distress and well developed Orientation: Patient oriented x3 Limitations: No limitations Head: Normal to inspection Ears: Hearing loss noted, no hearing aid required Nose: Normal external nose present Face and sinus: Normal facial exam Eyes: Appearance normal, both eyes and all related structures Neck: Normal visual inspection and Yes full ROM Respiratory: Normal respiratory effort and able to speak in complete sentences. Clear to auscultation bilaterally Cardiovascular: Regular rate and rhythm. Normal S1 and S2 GI: Normal to inspection. Soft to palpation and nontender Skin: No rashes or lesions noted, recent mosquito bite with swelling noted Neuro: Patient oriented x3 Extremities: Normal to inspection, history of bursitis in the left knee with residual swelling noted Results - Labs: Normal blood count, electrolytes, renal function, liver function; LDL at 110, triglycerides at 199. - Recent Tests: Colonoscopy up to date as of November 2022. Plan The patient's essential hypertension is well-managed with Losartan 100/25 mg daily, and no adjustments are required. Continuation of Levothyroxine is advised for stable hypothyroidism control. Pravastatin remains the treatment for hypercholesterolemia, with additional focus recommended on dietary measures to lower triglycerides. For GERD, emphasis on diet and behavior modification persists as the standard care approach. The patient will monitor her left knee bursitis as it decreases naturally. Assignments to secure an overdue mammogram and consider a shingles vaccine are crucial themes. To comply with wellness and prevention targets, ongoing low-fat diet adherence, exercise resumption, and hydration strategies are necessary, complementing regular screening practices. Patient was informed and verbally consented to the use of an ambient scribe for clinic note documentation during this visit. Discussion Notes I discussed with the patient about her current management and wellness strategies emphasizing the continuation of antihypertensive and thyroid medications, which have shown efficacy in maintaining her condition stable. The discussion covered her hypercholesterolemia management and highlighted dietary improvements for further triglyceride reduction. The need for regular exercise was underscored in relation to her health maintenance and weight management goals. I highlighted the importance of staying up to date with preventative screenings such as mammograms. For shingles, I advised vaccination due to the potential severity of the disease and noted the accessibility of vaccines at local pharmacies. We thoroughly reviewed safe use of medications for pain and alternative topical options for her arthritis symptoms, emphasizing the importance of regular physical activity as a mitigative means to decrease arthritis discomfort. During our conversation, return precautions and ongoing monitoring of existing conditions were advised for comprehensive management. Patient Instructions - Continue taking Losartan and Levothyroxine daily as prescribed. - Stay on Pravastatin and work on reducing triglycerides with dietary changes. - Schedule and complete a mammogram soon to update necessary screenings. - Stay active with regular exercise; maintain a low-fat diet. - Consider receiving a shingles vaccine at a pharmacy. - If experiencing increased knee pain or swelling, rest, elevate, and consult if necessary. - Make efforts to drink adequate fluids daily and limit sodium intake. - Follow up in a year unless any new symptoms or concerns arise. Orders: Orders Complete Blood Count Auto Diff 1 Year E78.00 - Pure hypercholesterolemia, unspecified Lipid Panel 1 Year E78.00 - Pure hypercholesterolemia, unspecified Vitamin D 25-OH Total 1 Year E78.00 - Pure hypercholesterolemia, unspecified Comprehensive Met. Panel 1 Year E78.00 - Pure hypercholesterolemia, unspecified Free T4 (Free Thyroxine) 1 Year E78.00 - Pure hypercholesterolemia, unspecified Thyroid Stimulating Hormone 1 Year E78.00 - Pure hypercholesterolemia, unspecified Vitamin B12 and Folate 1 Year E78.00 - Pure hypercholesterolemia, unspecified Magnesium 1 Year E78.00 - Pure hypercholesterolemia, unspecified Hemoglobin A1c 1 Year E78.00 - Pure hypercholesterolemia, unspecified Medications: Refilled levothyroxine 75 mcg PO DAILY 90 tabs 3RF E03.9 - Hypothyroidism, unspecified
[2024-07-13 08:20] VITALS: BP 120/64; PULSE 68; TEMP 36.2; O2SAT 98; BMI 29.4
--- OUTSIDE RECORDS SUMMARY | 2024-07-13 08:20 | XMS_ITS | Patient Health Record ---
Author Organization [facility] Address [address] [place] [address] Care Team Providers Care Financial Brokers Name Role Phone Po Marcos KEY Primary Care Provider Raheem Walker Jr Unavailable Allergies Allergen (clinical drug ingredient) Drug/Non Drug Allergy documented on EMR Reaction Allergy Type Onset Date Status Latex Gloves Unknown Drug Allergy Acti ve codeine Codeine Sulfate Unknown Drug Allergy A ctive Aleve Unknown Drug Allergy Active Reason For Referral No Information Medications Medication SIG (Take, Route, Frequency, Duration) Notes [...] Adult - as directed Orally 10/27/2022 Active Immunizations Vaccine Route Administration Date Status Comme nts Influenza Unknown 11/26/2021 Administered Problems Problem Type SNOMED Code ICD Code Onset Dates Problem Status W/U Status Risk Notes Problem [id number] Colon cancer screening (Z12.11) Active confirmed Problem [id number] Encounter for other preprocedural examination (Z01.818) Active confirmed Plan Of Treatment Future Test Test Name Order Date COLONOSCOPY 07/23/2012 COLONOSCOPY 10/27/2022 Insurance Providers Payer Name Payer Address Payer Phone Subscriber Number Group Number Insured Name Patient Relationship to Insured Coverage Start Date Coverage End Date [facility] [id number] [place], [place] [id number] SHAKILA ZELAYA Self - patient is the insured Medical (General) History Medical History History ICD Code Hypothyroidism Hyperlipidemia Hypertension Colonoscopy 11/21, diverticulosis, ten-y ear followup Surgical History Surgery Date(Month/Year) cholecystectomy tubal ligation myomectomy
== END 2024-07-13 08:52 | disposition home or self-care (01) ==
LOC: HO.HMCH 08:14
PROVIDERS: PCP Internal Medicine; Visit Provider Internal Medicine
DX: Z00.00 Encounter for general adult medical examination without abnormal findings (principal); Z12.31 Encounter for screening mammogram for malignant neoplasm of breast; I10 Essential (primary) hypertension; E03.9 Hypothyroidism, unspecified; E78.00 Pure hypercholesterolemia, unspecified; K21.9 Gastro-esophageal reflux disease without esophagitis; K76.0 Fatty (change of) liver, not elsewhere classified

== ENCOUNTER → 2024-07-13 08:13 | Outpatient (BNVA) | payer BC, SELFPAY | PROVIDERS: PCP Internal Medicine; Visit Provider Internal Medicine | DX: Z13.89 Encounter for screening for other disorder (principal) ==

== ENCOUNTER 2024-08-05 11:16 | Outpatient (AMB) | payer BC, SELFPAY ==
[2024-08-05 11:28] VITALS: BP 140/82; PULSE 83; O2SAT 97; BMI 29.3
--- NOTE | 2024-08-05 11:28 | MHC.PC.OV ---
Vital Signs 08/05/24 11:28 Height 5 ft 4 in Weight 171 lb BMI 29.3 BP 140/82 H Blood Pressure Location Lt brachial Position Sitting Pulse 83 Pulse Source Pulse Oximeter Pulse Oximetry (%) 97 Oxygen Delivery Method Room Air Intake Visit Reasons: Cough, Cold Symptoms Allergies Codeine Allergy (Unknown, Verified 08/05/24 11:29) Unknown naproxen (From Aleve) Allergy (Unknown, Verified 08/05/24 11:29) but no problems with advil simvastatin Allergy (Unknown, Verified 08/05/24 11:29) Unknown amlodipine Adverse Reaction (Intermediate, Verified 08/05/24 11:29) Swelling lisinopril Adverse Reaction (Intermediate, Verified 08/05/24 11:29) Cough Medication List - Last Reconciled 08/05/24 by Marcos Kaba MD azithromycin (Zithromax) For 250 mg dose pack: take 500 mg today (day 1), then 250 mg for 4 days (days 2-5) PO cholecalciferol (vitamin D3) 25 mcg PO DAILY fluticasone propionate 50 mcg/actuation (Flonase Allergy Relief) 2 sprays intranasal DAILY ibuprofen (Advil) 200 mg PO Q6H PRN levothyroxine 75 mcg PO DAILY losartan-hydrochlorothiazide 100-25 mg TAKE 1 TABLET BY MOUTH EVERY DAY mometasone 0.1% 1 appl topical DAILY 14 days multivitamin 1 tab PO DAILY pravastatin 10 mg PO DAILY Tobacco use date assessed: 07/13/24 Dental Screening Dental Screen Date: 07/13/24 HPI Cough, Cold Symptoms HPI Details 1 week cough, had fever to 100 sinus congestedion and PACHECO. no recent problems, chest congestion, PFSH Medical History (Updated 08/05/24 @ 11:48 by Marcos Kaba MD) Colon cancer screening Hypertension Fibroid GERD (gastroesophageal reflux disease) Hypothyroid Hypercholesterolemia Surgical History H/O colonoscopy History of dilatation and curettage History of cholecystectomy H/O tubal ligation Family History Mother Renal cancer Father FH: prostate cancer Lewy body dementia Parkinson disease Paternal Grandmother Breast cancer Paternal Aunt Breast cancer Maternal Uncle FH: prostate cancer Maternal Grandfather CVA (cerebral vascular accident) Social History Housing: Apartment Alcohol intake: current Alcohol intake frequency: holidays/special occasions only Comment: once a month 1-2 glasses Patient Tobacco Use Status: Never used Tobacco Tobacco use type: Cigarette e-Cigarette/Vaping Use: Never Used Second Hand Smoke Exposure: No service: No Current occupational status: employed Cognitive needs: No Hearing needs: No Vision needs: Yes (Glasses) Questionnaire PHQ-9 Over the last 2 weeks, how often have you been bothered by any of the following problems? 1. Little interest or pleasure in doing things: not at all 2. Feeling down, depressed, or hopeless: not at all 3. Trouble falling or staying asleep, or sleeping too much: not at all 4. Feeling tired or having little energy: not at all 5. Poor appetite or overeating: not at all 6. Feeling bad about yourself - or that you are a failure or have let yourself or your family down: not at all 7. Trouble concentrating on things, such as reading the newspaper or watching television: not at all 8. Moving or speaking so slowly that other people could have noticed. Or the opposite - being so fidgety or restless that you have been moving around a lot more than usual: not at all 9. Thoughts that you would be better off or of hurting yourself in some way: not at all Total score: 0 Depression Screening Interpretation: Negative Depression Screening Done: Yes Source: Developed by Drs. Olegario Ryan, Delaney Christine, Sai Lemus and colleagues, with an educational mark from [employer]. Thrive Questionnaire Date Thrive assessed: 07/06/24 I am a: Patient What is your living situation today?: I have a steady place to live Within the past 12 months, did the food you bought not last and you didn't have the money to get more?: Never true Within the past 12 months, did you worry whether your food would run out before you got money to buy more?: Never true Do you have trouble paying for medicines?: No Do you have trouble getting transportation to medical appointments?: No Do you have trouble paying your heating and electricity bill?: No Do you have trouble taking care of your child, family member or friend?: No Do you have trouble with day-to-day activities such as bathing, preparing meals, shopping, managing finances, etc.?: No Are you currently unemployed and looking for a job?: No Are you interested in more education?: No Please select the resources that you would like help with: None Currently or been in a relationship where the following occur: No concerns reported THRIVE Score: 0 AUDIT C Alcohol Use Questionnaire (AUDIT-C) 1. How often do you have a drink containing alcohol?: Monthly or less 2. How many drinks containing alcohol do you have on a typical day when you are drinking?: 1 or 2 3. How often do you have six or more drinks on one occasion?: Never Total Score: 1 MARYLOU-7 AMB Questionnaire MARYLOU-7 Date MARYLOU - 7 assessed: 07/13/24 Source: Developed by Drs. Olegario Ryan, Delaney Christine, Sai Lemus and colleagues, with an educational mark from [employer]. Physical exam (Primary Care) Vital Signs: Last Vital Signs Pulse 83 08/05/24 11:28 BP 140/82 H 08/05/24 11:28 Pulse Ox 97 08/05/24 11:28 Oxygen Delivery Method Room Air 08/05/24 11:28 BMI result Body Mass Index 29.3 Tobacco/Smoking Status: Tobacco use Status Tobacco use date assessed 07/13/24 08/05/24 11:32 Patient Tobacco Use Status Never used Tobacco 08/05/24 11:32 Tobacco use type Cigarette 08/05/24 11:32 e-Cigarette/Vaping Use Never Used 08/05/24 11:32 PHQ-9: PHQ-9 Score PHQ-9: Total score 0 08/05/24 11:32 Depression Screening Interpretation: Negative Thrive Assessment: Date of Thrive Assessment Date Thrive assessed 07/06/24 08/05/24 11:32 Currently or been in a relationship where the following occur: No concerns reported Const General: alert; No acute distress Eyes Conjunctivae: conjunctivae normal Resp Auscultation: clear to auscultation bilaterally Cardio Rate: regular rate Rhythm: regular rhythm GI Inspection: Yes normal to inspection Extrem General: Yes normal to inspection and No edema Coding Level of Care Code Est Pt Level 3 (80455) Diagnoses Acute bronchitis J20.9 Assessment & Plan Assessment & Plan (1) Acute bronchitis: Code(s): J20.9 - Acute bronchitis, unspecified Category: Medical Plan History of Present Illness The patient is a 64-year-old female presenting with a cough, fever, and sinus pressure. The cough began approximately one week ago, accompanied by a fever of 100?F and sinus pressure with headaches radiating to the eyes. She reports congestion primarily in the facial area, with no significant ear pain, and has been experiencing increased coughing upon physical exertion. The patient has a history of hypothyroidism, hypercholesterolemia, gastroesophageal reflux disease, and hypertension. She has not experienced sinus problems for several years and has not required allergy medications for about seven years until recently starting Claritin. Health Maintenance Social History Review of Systems - General: Reports fever of 100?F - Respiratory: Reports cough and congestion, denies dyspnea - ENT: Reports sinus pressure and headaches radiating to the eyes, denies ear pain Physical Exam - Oral cavity: No abnormalities noted upon examination - Ears: No abnormalities noted upon otoscopic examination Results Plan The patient is suspected to have acute bronchitis, likely viral in nature, and sinusitis. An antibiotic, Zithromax, was discussed as a precautionary measure in case symptoms persist or worsen, given the patient's preference for its ease of use. The patient was advised to maintain adequate hydration and to monitor symptoms closely. Patient was informed and verbally consented to the use of an ambient scribe for clinic note documentation during this visit. Discussion Notes I discussed with the patient that her symptoms are consistent with acute bronchitis, likely viral, and sinusitis. We considered prescribing Zithromax as a precautionary measure, given her preference and the ease of administration. I advised her to stay hydrated and to monitor her symptoms, especially if they persist or worsen. Patient Instructions - Take Zithromax as prescribed if symptoms persist or worsen. - Drink plenty of water to stay hydrated. - Monitor symptoms and seek further medical attention if they do not improve. Medications: New azithromycin (Zithromax) For 250 mg dose pack: take 500 mg today (day 1), then 250 mg for 4 days (days 2-5) PO 6 tabs 0RF J20.9 - Acute bronchitis, unspecified
--- OUTSIDE RECORDS SUMMARY | 2024-08-05 12:27 | XMS_ITS | Patient Health Record ---
Author Organization [facility] Address [address] [place] [address] Care Team Providers [employer] D[employer] Name Role Phone Po Marcos KEY Primary Care Provider Raheem Walker Jr Unavailable [phone] Allergies Allergen (clinical drug ingredient) Drug/Non Drug [...] Problem Status W/U Status Risk Notes Problem [id number] Colon cancer screening (Z12.11) Active confirmed Problem [id number] Encounter for other preprocedural examination (Z01.818) Active confirmed Plan Of Treatment Future Test Test Name Order Date COLONOSCOPY 07/23/2012 COLONOSCOPY 10/27/2022 Insurance Providers Payer Name Payer Address Payer Phone Subscriber Number Group Number Insured Name Patient Relationship to Insured Coverage Start Date Coverage End Date [facility] [address] [place], [place] [id number] SHAKILA ZELAYA Self - patient is the insured Medical (General) History Medical History History ICD Code Hypothyroidism Hyperlipidemia Hypertension Colonoscopy 11/21, diverticulosis, ten-y ear followup Surgical History Surgery Date(Month/Year) cholecystectomy tubal ligation myomectomy
== END 2024-08-05 11:50 | disposition home or self-care (01) ==
LOC: HO.HMCH 11:17
PROVIDERS: PCP Internal Medicine; Visit Provider Internal Medicine
DX: J20.9 Acute bronchitis, unspecified (principal)

== ENCOUNTER → 2024-08-05 11:16 | Outpatient (BNVA) | payer BC, SELFPAY | PROVIDERS: PCP Internal Medicine; Visit Provider Internal Medicine | DX: Z13.89 Encounter for screening for other disorder (principal) ==